=== PATIENT | female | born 1985 | race Caucasian/White ===

== ENCOUNTER 2017-04-22 04:59 | Emergency (ER) | payer OTHER ==
[~2017-04-22] VITALS: Ht 165.1 cm; Wt 52.6 kg
[~2017-04-22 04:59] MED LIST: BCPILLS PO
[2017-04-22 05:07] VITALS: TEMP 36.6; Ht 165.1 cm; Wt 52.6 kg
[2017-04-22] MEDS ORDERED: SODIUM CHLORIDE 0.9% 1000ML 1,000 ML IV STA (05:40)
[2017-04-22 05:49] LABS: BASO % 0.3 %; BASO ABS # 0.02 K/uL (0-0.2); COMPLETE YES; HEMATOCRIT 39.8 % (37-47); IG% 0.3 %; LYMPH % 17.2 %; LYMPH ABS # 1.26 K/uL (1.2-3.4); MEAN CELL VOLUME 95.2 fL (80-100); MEAN CORPUSCULAR HEMOGLOBIN 32.3 pg (25-34); MEAN CORPUSCULAR HGB CONC 33.9 g/dl (32-36); MEAN PLATELET VOLUME 10.7 fL (7.4-10.4); NEUT % 72.2 %; PLATELET COUNT 165 K/uL (130-400); RED BLOOD COUNT 4.18 M/uL (4.2-5.4); WHITE BLOOD COUNT 7.32 K/uL (4.8-10.8)
[2017-04-22] MEDS ORDERED: KETOROLAC TROMETHAMINE 30 MG/ML VIAL IV STA (05:56)
[2017-04-22 05:59] LABS: BUN/CREATININE RATIO 18.6 (10-20); CALCIUM 8.7 mg/dl (8.5-10.1); CREATININE 0.88 mg/dl (0.60-1.20); POTASSIUM 3.9 mmol/L (3.5-5.1)
[2017-04-22 06:01] LABS: ALB/GLOB RATIO 1.2 (0.9-2)
[2017-04-22 06:03] LABS: URINE APPEARANCE CLEAR (CLEAR); URINE BILIRUBIN NEG (NEG); URINE COLOR YELLOW; URINE NITRITE NEG (NEG); URINE SPECIFIC GRAVITY 1.022 (1.000-1.030); UROBILINOGEN NEG (NEG); ZZUR CULT IF INDIC CLEAN CATCH NO
[2017-04-22 06:05] LABS: MANUAL MICROSCOPIC REQUIRED? NO; REVIEW REQ? NO
[2017-04-22] MEDS ORDERED: MoRPHine SULFATE 4 MG/ML 1 ML CARP\\VIAL IV STA (06:18)
[2017-04-22] MEDS ORDERED: LEVOTAB2 PO (06:53)
[2017-04-22] MEDS ORDERED: MoRPHine SULFATE 2 MG/ML CARP IV STA (07:19)
--- NOTE | 2017-04-22 07:35 | DIAGNOSTIC IMAGING REPORT ---
PELVIC ULTRASOUND, TRANSABDOMINAL AND TRANSVAGINAL HISTORY: lower abd pain, hx ovarian cyst COMPARISON: Pelvic ultrasound 07/08/2011. FINDINGS: Uterus: Unremarkable. Endometrial stripe: Small amount of fluid within the endometrial cavity. The endometrial stripe measures 2 mm in thickness. Right ovary: Obscured by overlying bowel gas. Left ovary: Obscured by overlying bowel gas. Miscellaneous:Trace pelvic fluid. IMPRESSION: 1. Small amount of fluid within the endometrial cavity. The endometrial stripe is normal in thickness. 2. The ovaries were obscured by overlying bowel gas. 3. Trace pelvic free fluid which is likely physiologic. Electronically signed by: Jose Miguel Pradhan M.D. 04/22/2017 7:34 AM Dictated Date/Time: 04/22/2017 7:32 AM
[2017-04-22 07:40] VITALS: BP 119/80; PULSE 73; O2SAT 100
--- NOTE | 2017-04-22 07:45 | EMERGENCY ROOM VISIT NOTE ---
History First contact with patient: 05:10 Chief Complaint: ABDOMINAL PAIN Stated Complaint: SEVERE STOMACH PAIN Nursing Triage Summary: c/o abd pain since 1930 no n/v/d. History of Present Illness The patient is a 32 year old female who presents to the Emergency Room with complaints of abdominal pain which began yesterday evening. She states the pain is in the lower abdomen and has been gradually worsening. She has been able to eat without difficulty. She performed an enema at home without relief. The patient does report she has had normal bowel movements but thought that the enema could help her pain. She took Rolaids without relief. The patient denies any nausea, vomiting, fevers, vaginal discharge or urinary symptoms. She currently has her menstrual period. She takes control pills but no other medications daily. She denies any surgical history. She did not take any medication at home for the pain. She does report a history of ovarian cysts and states this feels similar. Review of Systems A complete 10 point review of systems was reviewed with the patient with pertinent positives and negatives as per history of present illness. All else were negative. Family History Gallbladder disease Social History Smoking Status: Never Smoker Alcohol Use: occasionally Marital Status: Housing Status: lives with family Occupation Status: employed Current/Historical Medications Scheduled Levonorgestrel & Eth Estradiol (Aviane), 1 TAB PO DAILY Allergies Coded Allergies: Sulfa Drugs (Unverified Allergy, Unknown, UNKNOWN, 03/06/16) Physical Exam Vital Signs Date Time Temp Pulse Resp B/P (MAP) Pulse Ox O2 Delivery O2 Flow Rate FiO2 04/22/17 07:40 73 18 119/80 100 Room Air 04/22/17 06:18 71 22 126/90 100 Room Air 04/22/17 05:07 36.6 60 18 133/82 100 Room Air Physical Exam VITALS: Vitals are noted on the nurse's note and reviewed by myself. Vital signs stable. GENERAL: This is a 32-year-old female, in no acute distress, nondiaphoretic, well-developed well-nourished. HEENT: Normocephalic. PERRLA. EOMI. Mucous membranes moist. HEART: Regular rate and rhythm without murmurs gallops or rubs. LUNGS: Clear to auscultation bilaterally without wheezes, rales or rhonchi. ABDOMEN: Positive bowel sounds x 4. Soft, mild tenderness to palpation over the suprapubic region. No guarding or rebound tenderness. NEURO: Patient was alert and oriented to person place and time. Medical Decision & Procedures ER Provider Diagnostic Interpretation: PELVIC ULTRASOUND, TRANSABDOMINAL AND TRANSVAGINAL HISTORY: lower abd pain, hx ovarian cyst COMPARISON: Pelvic ultrasound 07/08/2011. FINDINGS: Uterus: Unremarkable. Endometrial stripe: Small amount of fluid within the endometrial cavity. The endometrial stripe measures 2 mm in thickness. Right ovary: Obscured by overlying bowel gas. Left ovary: Obscured by overlying bowel gas. Miscellaneous:Trace pelvic fluid. IMPRESSION: 1. Small amount of fluid within the endometrial cavity. The endometrial stripe is normal in thickness. 2. The ovaries were obscured by overlying bowel gas. 3. Trace pelvic free fluid which is likely physiologic. Laboratory Results 04/22/17 05:30 Red Blood Count 4.18, Mean Corpuscular Volume 95.2, Mean Corpuscular Hemoglobin 32.3, Mean Corpuscular Hemoglobin Concent 33.9, Mean Platelet Volume 10.7, Neutrophils (%) (Auto) 72.2, Lymphocytes (%) (Auto) 17.2, Monocytes (%) (Auto) 7.0, Eosinophils (%) (Auto) 3.0, Basophils (%) (Auto) 0.3, Neutrophils # (Auto) 5.29, Lymphocytes # (Auto) 1.26, Monocytes # (Auto) 0.51, Eosinophils # (Auto) 0.22, Basophils # (Auto) 0.02 04/22/17 05:30 Test 04/22/17 05:30 04/22/17 05:40 White Blood Count 7.32 K/uL (4.8-10.8) Red Blood Count 4.18 M/uL (4.2-5.4) Hemoglobin 13.5 g/dL (12.0-16.0) Hematocrit 39.8 % (37-47) Mean Corpuscular Volume 95.2 fL (80-100) Mean Corpuscular Hemoglobin 32.3 pg (25-34) Mean Corpuscular Hemoglobin Concent 33.9 g/dl (32-36) Platelet Count 165 K/uL (130-400) Mean Platelet Volume 10.7 fL (7.4-10.4) Neutrophils (%) (Auto) 72.2 % Lymphocytes (%) (Auto) 17.2 % Monocytes (%) (Auto) 7.0 % Eosinophils (%) (Auto) 3.0 % Basophils (%) (Auto) 0.3 % Neutrophils # (Auto) 5.29 K/uL (1.4-6.5) Lymphocytes # (Auto) 1.26 K/uL (1.2-3.4) Monocytes # (Auto) 0.51 K/uL (0.11-0.59) Eosinophils # (Auto) 0.22 K/uL (0-0.5) Basophils # (Auto) 0.02 K/uL (0-0.2) RDW Standard Deviation 45.2 fL (36.4-46.3) RDW Coefficient of Variation 13.0 % (11.5-14.5) Immature Granulocyte % (Auto) 0.3 % Immature Granulocyte # (Auto) 0.02 K/uL (0.00-0.02) Anion Gap 10.0 mmol/L (3-11) Est Creatinine Clear Calc Drug Dose 74.8 ml/min Estimated GFR () 99.4 Estimated GFR (Non- 85.7 BUN/Creatinine Ratio 18.6 (10-20) Calcium Level 8.7 mg/dl (8.5-10.1) Total Bilirubin 0.5 mg/dl (0.2-1) Aspartate Amino Transf (AST/SGOT) 17 U/L (15-37) Alanine Aminotransferase (ALT/SGPT) 29 U/L (12-78) Alkaline Phosphatase 55 U/L (45-117) Total Protein 7.0 gm/dl (6.4-8.2) Albumin 3.8 gm/dl (3.4-5.0) Globulin 3.2 gm/dl (2.5-4.0) Albumin/Globulin Ratio 1.2 (0.9-2) Urine Color YELLOW Urine Appearance CLEAR (CLEAR) Urine pH 6.0 (4.5-7.5) Urine Specific [place] 1.022 (1.000-1.030) Urine Protein NEG (NEG) Urine Glucose (UA) NEG (NEG) Urine Ketones NEG (NEG) Urine Occult Blood NEG (NEG) Urine Nitrite NEG (NEG) Urine Bilirubin NEG (NEG) Urine Urobilinogen NEG (NEG) Urine Leukocyte Esterase NEG (NEG) Urine Test NEG (NEG) Medications Administered Medications (Trade) Dose Ordered Sig/Ephraim Route Start Time Stop Time Status Last Admin Dose Admin Sodium Chloride 1,000 ml @ 999 mls/hr Q1H1M STAT IV 04/22/17 05:40 04/22/17 06:40 DC 04/22/17 05:53 999 MLS/HR Ketorolac Tromethamine (Toradol Inj) 30 mg NOW STAT IV 04/22/17 05:56 04/22/17 05:57 DC 04/22/17 06:00 30 MG Morphine Sulfate (MoRPHine SULFATE INJ) 4 mg NOW STAT IV 04/22/17 06:18 04/22/17 06:19 DC 04/22/17 06:22 4 MG Morphine Sulfate (MoRPHine SULFATE INJ) 2 mg NOW STAT IV 04/22/17 07:19 04/22/17 07:20 DC 04/22/17 07:39 2 MG ED Course The patient was evaluated as above. Labs were drawn and IV access was obtained. Patient was medicated with 30 mg Toradol IV Patient reported continued pain and was given 4 mg morphine IV.. Pelvic ultrasound was performed and read by radiology as above. Patient was reevaluated and did have mild continued pain. She was given an additional 2 mg morphine IV. Discharge instructions were reviewed with the patient. The patient verbalized understanding of my assessment and treatment plan and was discharged home in good condition. Medical Decision Differential diagnosis includes ovarian cyst, ovarian torsion, ectopic , UTI, appendicitis, cholecystitis, pancreatitis, gastroenteritis, bowel obstruction, PID, among others. The patient is a 32-year-old female who presents today complaining of suprapubic abdominal pain. She had mild tenderness on exam. Labs revealed no leukocytosis, anemia or concerning electrolyte abnormalities. Kidney and liver functions are within normal limits. Urinalysis was not suggestive of infection. Urine was negative. A pelvic ultrasound was performed. The ovaries were obscured by overlying bowel gas. The patient may be having pelvic pain related to her menstrual cycle or could have an ovarian cyst that is not identified on ultrasound. She has had cysts in the past and states her symptoms feel similar. I did discuss options of care including ordering a CT scan versus observation for worsening symptoms at home. The patient and her mother agreed that she would like to be discharged home and will return here if she develops worsening symptoms. She will follow-up with her primary care provider this week or return here as needed. Based on the patient's presentation and work up, I feel the patient is stable for outpatient treatment. The patient was educated to return to the emergency department for any worsening of their current condition or new/concerning symptoms. She will follow up with her PCP and [employer]. Medication reconciliation: I attest that I have personally reviewed the patient 's current medication list. Blood pressure screening: Patient was found to have normal blood pressure on screening and does not require follow-up. Impression Primary Impression: Suprapubic abdominal pain Departure Information Dispostion Home / Self-Care Condition GOOD Referrals Kristin Jerome D.O. (PCP) Patient Instructions My [facility] Additional Instructions You have been treated in the Emergency Department your Abdominal Pain. Laboratory results and imaging studies have ruled out any emergent causes for your abdominal pain which would warrant admission or surgery. For pain control, you can use the following [id number] medicines (if >12 yo): - Regular strength (325mg/tab) Tylenol (acetaminophen) 2 tabs every 4-6 hours as needed. Do not exceed 12 tablets in a 24 hour period. Avoid taking more than 4 grams (4000 mg) of Tylenol per day. This includes any other sources of acetaminophen you may take on a regular basis. - Regular strength (200 mg/tab) Advil (ibuprofen) 1-2 tabs every 4-6 hours as needed. Do not exceed a dose of 3200 mg per day. Drink plenty of water and stay well hydrated. As with any trip to the Emergency Department, you should follow-up with your Primary Care Provider from today's visit. Return to the emergency department if your symptoms persist despite treatment plan outlined above or if the following symptoms occur: Worsening pain, vomiting , fevers or any other new/concerning symptoms.
[2017-04-22] MEDS ORDERED: BCPILLS PO (18:51)
[2017-04-22] MEDS ORDERED: OXYC1TAB3 PO (21:59)
[2017-04-22] MEDS ORDERED: ONDA4TAB10 SL (21:59)
[2017-04-26] MEDS ORDERED: CLC100X PO (09:47)
== END 2017-04-22 08:11 | disposition home or self-care (01) ==
LOC: C.EDB 05:00 → C.EDA 08:11
DX: R10.30 Lower abdominal pain, unspecified (principal); Z79.3 Long term (current) use of hormonal contraceptives

== ENCOUNTER 2017-04-22 18:13 | Emergency (ER) | payer OTHER ==
[~2017-04-22] VITALS: Ht 165.1 cm; Wt 53.4 kg
[~2017-04-22 18:13] MED LIST changes: +LEVOTAB2 PO
[2017-04-22 18:15] VITALS: TEMP 36.5; Ht 165.1 cm; Wt 53.4 kg
[2017-04-22] MEDS ORDERED: SODIUM CHLORIDE 0.9% 1000ML 1,000 ML IV STA (18:32)
[2017-04-22] MEDS ORDERED: ONDANSETRON INJ 2 MG/ML 2 ML VIAL IV STA (18:32)
[2017-04-22] MEDS ORDERED: SODIUM CHLORIDE 0.9% 1000ML 1,000 ML IV ONE (18:32)
[2017-04-22] MEDS ORDERED: MoRPHine SULFATE 4 MG/ML 1 ML CARP\\VIAL IV STA (18:32)
--- NOTE | 2017-04-22 18:39 | EMERGENCY ROOM VISIT NOTE ---
History Report prepared by Nando: Candice Barnett Under the Supervision of: Dr. Amari Louise M.D. First contact with patient: 18:20 Chief Complaint: ABDOMINAL PAIN Stated Complaint: VOMITING, SEVERE ABDOMINAL PAIN Nursing Triage Summary: Abdominal pain bilateral lower abdomen since last night. Seen in ED this morning and discharged with a negative assessment. Pt presents with 10/10 abdominal pain, has not relieved since discharge. Tyelnol and ibuprofen not helping pain. History of Present Illness The patient is a 32 year old female who presents to the Emergency Room with complaints of waxing and waning mid-abdominal pain starting around 7:30 pm last night. She notes intermittent pain radiation to the left side of her back. The patient had a bowel movement yesterday without relief. She does not have any worsening pain with walking. She was evaluated at the Emergency Room last night. She had an ultrasound yesterday which was negative but the ovaries could not be visualized. She has been taking Tylenol and Ibuprofen with some relief. The patient had a vomiting episode last night. She currently rates a pain intensity of 4/10. She currently denies any nausea. She is currently having her menstrual period. She normally has some period with her period but it is never too severe. She denies headache, sore throat, chest pain, shortness of breath, diarrhea, urinary symptoms, vaginal bleeding or discharge, or any other complaints. She has a history of ovarian cyst and reports similar pain. She denies any history of abdominal surgeries or kidney stones. She is not currently on any medication except for control. 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 Source of History: patient Onset: last night Position: abdomen (mid) Symptom Intensity: 4/10 Timing: waxes/wanes Modifying Factors (Relieving): tylenol (with some relief), ibuprofen (with some relief) Associated Symptoms: + vomiting, No headache, No sorethroat, No chest pain, No SOB, No diarrhea, No urinary symptoms Review of Systems As above. All other systems reviewed were negative unless otherwise stated in history. At least 10 were reviewed Past Medical & Surgical Medical Problems: (1) Mitral valve prolapse (2) SVT (supraventricular tachycardia) Old medical records were reviewed. Nurse's notes were reviewed and I agree with. Family History Gallbladder disease Social History Smoking Status: Never Smoker Alcohol Use: occasionally Marital Status: Housing Status: lives with family Occupation Status: employed Current/Historical Medications Scheduled Control Pills ( Control Pills), 1 TAB PO DAILY Ondasetron Odt (Zofran Odt), 4 MG SL Q6H Scheduled PRN Oxycodone Immediate Rel Tab (Roxicodone Ir), 1 TAB PO Q6 PRN for Severe Pain Allergies Coded Allergies: Sulfa Drugs (Unverified Allergy, Unknown, UNKNOWN, 03/06/16) Physical Exam Vital Signs Date Time Temp Pulse Resp B/P (MAP) Pulse Ox O2 Delivery O2 Flow Rate FiO2 04/22/17 22:20 53 18 122/76 100 04/22/17 20:30 61 18 117/76 100 Room Air 04/22/17 18:15 36.5 66 18 152/90 100 Room Air Physical Exam General: Mildly ill-appearing, young female, in no acute distress. HEENT: Normal cephalic atraumatic. Pupils are equal round and reactive to light. Extraocular movements are intact. Oropharynx is pink with moist mucous membranes. No swelling of the mouth lips or tongue. Neck: Supple with a midline trachea. No meningeal signs or stiffness, no JVD or bruits. No Stridor. Chest: Clear to auscultation bilaterally. No wheezes or rhonchi. No increased work of breathing. Heart: regular rate and rhythm. Abdomen: Soft, nondistended without rebound guarding or rigidity. Mildly diffusely tender in the central abdomen, no guarding or rigidity. Extremities: No cyanosis clubbing or edema. No calf tenderness or assymetry Spine/Back. Non tender to palpation. No CVA tenderness Skin: Good turgor without rashes. Neurologic exam: Cranial nerves two through 12 are intact. Motor and sensation are intact and symmetrical throughout. Medical Decision & Procedures ER Provider Diagnostic Interpretation: CT results as stated below per my review and radiologist interpretation: ABDOMEN AND PELVIS CT WITH IV CONTRAST CT DOSE: 266.09 mGy.cm HISTORY: Right lower quadrant abdominal pain. eval for appy, ovarian cyst, colitis TECHNIQUE: Multiaxial CT images of the abdomen and pelvis were performed following the use of intravenous contrast. COMPARISON STUDY: Abdomen and pelvis CT 07/08/2011. FINDINGS: The lung bases are clear. No pneumoperitoneum. No pneumatosis. No fractures within the visualized osseous structures. No hepatic or splenic masses. Mild periportal edema. The gallbladder, adrenal glands, and pancreas are unremarkable. The kidneys enhance normally. No hydronephrosis. The spleen is enlarged measuring 17 cm in length. No retroperitoneal lymphadenopathy. Small amount pelvic free fluid. Normal bladder, uterus, bilateral adnexa. The appendix is not clearly identified. This is obscured by the multiple decompressed loops of small bowel within the right lower quadrant. Suboptimal evaluation for bowel pathology due to the lack of oral contrast. However, there is no definite bowel wall thickening or obstruction. Punctate calcifications within the right lower quadrant appear to be within the small bowel and cecum. IMPRESSION: 1. Splenomegaly. 2. Mild periportal edema. This is nonspecific and could be due to overhydration or underlying hepatic pathology. Recommend correlation with LFTs. 3. No definite bowel wall thickening or obstruction. 4. The appendix is not identified. 5. Small amount of pelvic free fluid. Electronically signed by: Jose Miguel Pradhan M.D. 04/22/2017 7:59 PM Dictated Date/Time: 04/22/2017 7:46 PM Laboratory Results 04/22/17 18:48 Red Blood Count 4.13, Mean Corpuscular Volume 94.2, Mean Corpuscular Hemoglobin 32.0, Mean Corpuscular Hemoglobin Concent 33.9, Mean Platelet Volume 10.7, Neutrophils (%) (Auto) 62.0, Lymphocytes (%) (Auto) 27.6, Monocytes (%) (Auto) 6.2, Eosinophils (%) (Auto) 3.6, Basophils (%) (Auto) 0.4, Neutrophils # (Auto) 3.48, Lymphocytes # (Auto) 1.55, Monocytes # (Auto) 0.35, Eosinophils # (Auto) 0.20, Basophils # (Auto) 0.02 04/22/17 18:48 Test 04/22/17 18:48 White Blood Count 5.61 K/uL (4.8-10.8) Red Blood Count 4.13 M/uL (4.2-5.4) Hemoglobin 13.2 g/dL (12.0-16.0) Hematocrit 38.9 % (37-47) Mean Corpuscular Volume 94.2 fL (80-100) Mean Corpuscular Hemoglobin 32.0 pg (25-34) Mean Corpuscular Hemoglobin Concent 33.9 g/dl (32-36) Platelet Count 141 K/uL (130-400) Mean Platelet Volume 10.7 fL (7.4-10.4) Neutrophils (%) (Auto) 62.0 % Lymphocytes (%) (Auto) 27.6 % Monocytes (%) (Auto) 6.2 % Eosinophils (%) (Auto) 3.6 % Basophils (%) (Auto) 0.4 % Neutrophils # (Auto) 3.48 K/uL (1.4-6.5) Lymphocytes # (Auto) 1.55 K/uL (1.2-3.4) Monocytes # (Auto) 0.35 K/uL (0.11-0.59) Eosinophils # (Auto) 0.20 K/uL (0-0.5) Basophils # (Auto) 0.02 K/uL (0-0.2) RDW Standard Deviation 44.3 fL (36.4-46.3) RDW Coefficient of Variation 12.8 % (11.5-14.5) Immature Granulocyte % (Auto) 0.2 % Immature Granulocyte # (Auto) 0.01 K/uL (0.00-0.02) Urine Color YELLOW Urine Appearance CLEAR (CLEAR) Urine pH 7.5 (4.5-7.5) Urine Specific [place] 1.005 (1.000-1.030) Urine Protein NEG (NEG) Urine Glucose (UA) NEG (NEG) Urine Ketones NEG (NEG) Urine Occult Blood NEG (NEG) Urine Nitrite NEG (NEG) Urine Bilirubin NEG (NEG) Urine Urobilinogen NEG (NEG) Urine Leukocyte Esterase NEG (NEG) Anion Gap 8.0 mmol/L (3-11) Est Creatinine Clear Calc Drug Dose 91.5 ml/min Estimated GFR () 124.5 Estimated GFR (Non- 107.5 BUN/Creatinine Ratio 14.5 (10-20) Calcium Level 8.3 mg/dl (8.5-10.1) Total Bilirubin 1.0 mg/dl (0.2-1) Direct Bilirubin 0.3 mg/dl (0-0.2) Aspartate Amino Transf (AST/SGOT) 17 U/L (15-37) Alanine Aminotransferase (ALT/SGPT) 27 U/L (12-78) Alkaline Phosphatase 54 U/L (45-117) Total Protein 6.8 gm/dl (6.4-8.2) Albumin 3.8 gm/dl (3.4-5.0) Lipase 82 U/L (73-393) Human Chorionic Gonadotropin, Qual NEG (NEG) Monoscreen NEG (NEG) Laboratory studies as stated above per my review. Medications Administered Medications (Trade) Dose Ordered Sig/Ephraim Route Start Time Stop Time Status Last Admin Dose Admin Sodium Chloride 1,000 ml @ 999 mls/hr Q1H1M STAT IV 04/22/17 18:32 04/22/17 19:32 DC 04/22/17 18:58 999 MLS/HR Sodium Chloride 1,000 ml @ 200 mls/hr Q5H ONCE IV 04/22/17 18:32 04/22/17 22:33 DC 04/22/17 20:29 200 MLS/HR Morphine Sulfate (MoRPHine SULFATE INJ) 4 mg NOW STAT IV 04/22/17 18:32 04/22/17 18:35 DC 04/22/17 18:57 4 MG Ondansetron HCl (Zofran Inj) 4 mg NOW STAT IV 04/22/17 18:32 04/22/17 18:35 DC 04/22/17 18:57 4 MG Oxycodone HCl (Roxicodone Immediate Rel 5MG Home Pack) 1 homepack UD ONCE PO 04/22/17 22:00 04/22/17 22:01 DC 04/22/17 22:14 1 HOMEPACK Ondansetron HCl (ZOFRAN ODT 4MG Home Pack) 1 homepack UD ONCE PO 04/22/17 22:00 04/22/17 22:01 DC 04/22/17 22:14 1 HOMEPACK ED Course 1820: Past medical records reviewed. The patient was evaluated in room C12B, and a complete history and physical examination were performed. 1831: Zofran Inj 4 mg IV, Morphine Sulfate 4 mg IV, Sodium Chloride 1000 ml @ 200 mls/hr IV, Sodium Chloride 1000 ml @ 999 mls/hr IV 1913: I reevaluated the patient who is feeling better. She is waiting to go to CT scan. 1953: I reevaluated the patient. She is resting comfortably without pain. 2043: The patient is resting comfortably. 2199: Ondansetron HCl 1 homepack PO, Oxycodone HCl 1 homepack PO 2226: Upon reevaluation, the patient is resting comfortably. I discussed the results and treatment plan with her. She verbalized agreement of the treatment plan. The patient was discharged home. Medical Decision Differential diagnosis includes but is not limited to appendicitis, dehydration , ovarian cyst, colitis, electrolyte or metabolic abnormalities. Medication Reconciliation: I attest that I have personally reviewed the patient' s current medication list. Blood Pressure Screening: Patient was found to have a slightly elevated blood pressure due to circumstances. I do not believe that the patient requires hypertension monitoring. This patient comes in as described above. She was seen here last night and has continuing abdominal pain. She also had an episode of vomiting as well. The pain is central. She has no peritonitis on exam. I reviewed her workup from yesterday and she is not . Her white count is not elevated and ultrasound was unremarkable however the ovaries were not definitely visualized. She denies any vaginal bleeding or urinary symptoms. IV access was established blood work and urinalysis was obtained . She was hydrated with 1 L IV normal saline bolus and 200 mL an hour of IV NS. Her mothers was at the bedside and I discussed the care with her as well. Her mother is driving. She was given morphine 4 mg IV and Zofran 4 mg IV. I did order a CAT scan after splinting the risks and the benefits skin shows some splenomegaly but otherwise no acute findings. I'm not sure the splenomegaly is actually causing her symptoms and she's not tender when I push and left upper quadrant. I had a Monospot test that was negative. This could be related to some viral illness and again her tenderness is not over the spleen. She's had no evidence of bleeding. We'll have her rest and drink clear fluids follow-up with her doctor in 1-2 days for recheck. She can use Zofran for nausea or vomiting. For pain, she can use [id number] pain medicine but do not exceed the over-the- counter dosing regimen. She should return if: increasing pain, worsening of symptoms, fever or chills, any new problems or concerns. She is happy with the plan and discharged to home. Impression Primary Impression: Central abdominal pain Additional Impression: Splenomegaly Scribe Attestation The scribe's documentation has been prepared under my direction and personally reviewed by me in its entirety. I confirm that the note above accurately reflects all work, treatment, procedures, and medical decision making performed by me. Departure Information Dispostion Home / Self-Care Prescriptions Ondasetron Odt (ZOFRAN ODT) 4 Mg Tab 4 MG SL Q6H for Nausea, #6 TAB Prov: Amari Louise M.D. 04/22/17 Oxycodone Immediate Rel Tab (ROXICODONE IR) 5 Mg Tab 1 TAB PO Q6 Y for Severe Pain, #10 TAB Prov: Amari Louise M.D. 04/22/17 Referrals Kristin Jerome D.O. (PCP) Forms Call Back Authorization, HOME CARE DOCUMENTATION FORM, IMPORTANT VISIT INFORMATION Patient Instructions My [facility] Additional Instructions Rest Drink plenty of fluids For nausea May use Zofran 4 mg every 6 hours as needed For pain, may use [id number] Tylenol/acetaminophen Do not exceed the [id number] recommended dosages for these medications For more severe pain use OxyIR 5 mg, 1 pill every 4-6 hours as needed OxyIR may make you drowsy do not take before drinking, driving, working Avoid any activity where you could hit her abdomen or injure your spleen Return if: Increasing pain, worsening of symptoms, fever or chills, any new problems or concerns Follow-up with your doctor in 1-2 days for recheck Problem Qualifiers
[2017-04-22] MEDS ORDERED: BCPILLS PO (18:51)
[2017-04-22 19:00] LABS: BASO % 0.4 %; BASO ABS # 0.02 K/uL (0-0.2); COMPLETE YES; EOS % 3.6 %; HEMATOCRIT 38.9 % (37-47); IG% 0.2 %; LYMPH % 27.6 %; LYMPH ABS # 1.55 K/uL (1.2-3.4); MEAN CELL VOLUME 94.2 fL (80-100); MEAN CORPUSCULAR HGB CONC 33.9 g/dl (32-36); MEAN PLATELET VOLUME 10.7 fL (7.4-10.4); MONO % 6.2 %; PLATELET COUNT 141 K/uL (130-400); RED BLOOD COUNT 4.13 M/uL (4.2-5.4); WHITE BLOOD COUNT 5.61 K/uL (4.8-10.8)
[2017-04-22 19:22] LABS: BUN/CREATININE RATIO 14.5 (10-20); CALCIUM 8.3 mg/dl (8.5-10.1); CREATININE 0.73 mg/dl (0.60-1.20); POTASSIUM 3.8 mmol/L (3.5-5.1)
[2017-04-22 19:31] LABS: URINE APPEARANCE CLEAR (CLEAR); URINE BILIRUBIN NEG (NEG); URINE COLOR YELLOW; URINE NITRITE NEG (NEG); URINE PH 7.5 (4.5-7.5); URINE SPECIFIC GRAVITY 1.005 (1.000-1.030); UROBILINOGEN NEG (NEG)
[2017-04-22 19:36] LABS: PREG INTERNAL NEGATIVE QC NEG CLEAR BACKGROUND; PREG INTERNAL POSITIVE QC POS CONTROL LINE
[2017-04-22] MEDS ORDERED: OPTIRAY 320 IV PRN (19:45)
[2017-04-22 19:52] LABS: MANUAL MICROSCOPIC REQUIRED? NO; REVIEW REQ? NO
--- NOTE | 2017-04-22 20:00 | DIAGNOSTIC IMAGING REPORT ---
ABDOMEN AND PELVIS CT WITH IV CONTRAST CT DOSE: 266.09 mGy.cm HISTORY: Right lower quadrant abdominal pain. eval for appy, ovarian cyst, colitis TECHNIQUE: Multiaxial CT images of the abdomen and pelvis were performed following the use of intravenous contrast. COMPARISON STUDY: Abdomen and pelvis CT 07/08/2011. FINDINGS: The lung bases are clear. No pneumoperitoneum. No pneumatosis. No fractures within the visualized osseous structures. No hepatic or splenic masses. Mild periportal edema. The gallbladder, adrenal glands, and pancreas are unremarkable. The kidneys enhance normally. No hydronephrosis. The spleen is enlarged measuring 17 cm in length. No retroperitoneal lymphadenopathy. Small amount pelvic free fluid. Normal bladder, uterus, bilateral adnexa. The appendix is not clearly identified. This is obscured by the multiple decompressed loops of small bowel within the right lower quadrant. Suboptimal evaluation for bowel pathology due to the lack of oral contrast. However, there is no definite bowel wall thickening or obstruction. Punctate calcifications within the right lower quadrant appear to be within the small bowel and cecum. IMPRESSION: 1. Splenomegaly. 2. Mild periportal edema. This is nonspecific and could be due to overhydration or underlying hepatic pathology. Recommend correlation with LFTs. 3. No definite bowel wall thickening or obstruction. 4. The appendix is not identified. 5. Small amount of pelvic free fluid. Electronically signed by: Jose Miguel Pradhan M.D. 04/22/2017 7:59 PM Dictated Date/Time: 04/22/2017 7:46 PM
[2017-04-22] MEDS ORDERED: ONDA4TAB10 SL (21:59)
[2017-04-22] MEDS ORDERED: OXYC1TAB3 PO (21:59)
[2017-04-22] MEDS ORDERED: ONDANSETRON HOME PACK 4MG OD TAB PO ONE (22:00)
[2017-04-22] MEDS ORDERED: OXYCODONE IR HOME PACK PO ONE (22:00)
[2017-04-22 22:20] VITALS: BP 122/76; PULSE 53; O2SAT 100
[2017-04-26] MEDS ORDERED: CLC100X PO (09:47)
== END 2017-04-22 22:23 | disposition home or self-care (01) ==
LOC: C.EDB 18:14 → C.EDC 22:23
DX: R10.9 Unspecified abdominal pain (principal); R16.1 Splenomegaly, not elsewhere classified; M54.9 Dorsalgia, unspecified; R11.10 Vomiting, unspecified

== ENCOUNTER 2017-04-24 08:58 | Observation (INO) | payer OTHER ==
[~2017-04-24] VITALS: Ht 165.1 cm; Wt 52.6 kg
[~2017-04-24 08:58] MED LIST changes: -LEVOTAB2 PO; +ONDA4TAB10 SL; +OXYC1TAB3 PO
[2017-04-24] MEDS ORDERED: SODIUM CHLORIDE 0.9% 1000ML 1,000 ML IV STA (09:28)
[2017-04-24] MEDS ORDERED: LORAZEPAM 2 MG/ML 1 ML VIAL IV STA (09:28)
[2017-04-24] MEDS ORDERED: MoRPHine SULFATE 4 MG/ML 1 ML CARP\\VIAL IV STA (09:28)
[2017-04-24] MEDS ORDERED: ONDANSETRON INJ 2 MG/ML 2 ML VIAL IV STA (09:28)
[2017-04-24] MEDS ORDERED: IBUP-1459 PO (09:50)
[2017-04-24] MEDS ORDERED: ACET325T96 PO (09:50)
[2017-04-24 09:53] LABS: BASO % 0.3 %; BASO ABS # 0.02 K/uL (0-0.2); COMPLETE YES; EOS % 3.9 %; HEMATOCRIT 39.4 % (37-47); IG% 0.1 %; LYMPH % 14.9 %; LYMPH ABS # 1.06 K/uL (1.2-3.4); MEAN CELL VOLUME 96.3 fL (80-100); MEAN CORPUSCULAR HEMOGLOBIN 31.8 pg (25-34); MEAN PLATELET VOLUME 10.6 fL (7.4-10.4); MONO % 5.1 %; NEUT % 75.7 %; PLATELET COUNT 139 K/uL (130-400); RED BLOOD COUNT 4.09 M/uL (4.2-5.4)
[2017-04-24 10:03] LABS: URINE APPEARANCE CLEAR (CLEAR); URINE BILIRUBIN NEG (NEG); URINE COLOR YELLOW; URINE EPITHELIAL CELL AUTO 0-5 /lpf (0-5); URINE NITRITE NEG (NEG); URINE PH 8.5 (4.5-7.5); URINE SPECIFIC GRAVITY 1.014 (1.000-1.030); UROBILINOGEN NEG (NEG); ZZUR CULT IF INDIC CLEAN CATCH NO
[2017-04-24 10:08] LABS: MANUAL MICROSCOPIC REQUIRED? NO; REVIEW REQ? NO
[2017-04-24 10:09] LABS: BUN/CREATININE RATIO 9.2 (10-20); CALCIUM 8.6 mg/dl (8.5-10.1); CREATININE 0.76 mg/dl (0.60-1.20); POTASSIUM 3.7 mmol/L (3.5-5.1)
[2017-04-24 10:13] LABS: C-REACTIVE PROTEIN 0.3 mg/dl (0-0.29)
[2017-04-24 10:17] LABS: PREG INTERNAL NEGATIVE QC NEG CLEAR BACKGROUND; PREG INTERNAL POSITIVE QC POS CONTROL LINE
[2017-04-24 12:15] VITALS: O2SAT 100; Ht 165.1 cm; Wt 52.6 kg
[2017-04-24] MEDS ORDERED: ALUMINUM/MAGNESIUM SUSP 30 ML UDC PO PRN (12:30)
[2017-04-24] MEDS ORDERED: ONDANSETRON INJ 2 MG/ML 2 ML VIAL IV PRN (12:30)
[2017-04-24] MEDS ORDERED: IV FLUIDS COMPLETED PRN (12:45)
--- NOTE | 2017-04-24 13:05 | HISTORY & PHYSICAL EXAMINATION ---
DATE OF ADMISSION: 04/24/2017 PRIMARY CARE PROVIDER: Dr. Jerome. CHIEF COMPLAINT: Lower abdominal pain with nausea and vomiting since Sunday last. HISTORY OF PRESENT COMPLAINT: She is a 32-year-old female without significant past medical history, apparently has been complaining of lower abdominal pain since Sunday evening. She did not eat anything special before that and nobody else has been affected in the family. She had vomited about 3 times since Sunday and she came to ER Sunday and again ER on Sunday and she has had an ultrasound and also CT scan of the abdomen and pelvis as of today. Ultrasound came out negative except physiological amount of pelvic fluid and CT scan did show she may have mild splenic enlargement, but no other findings. Her labs were unremarkable. Given the ongoing problem with abdominal pain and vomiting with probable diagnosis of gastroenteritis, she was admitted to medical floor for continuation of care. Denies to any fever, chills or rigors. Denies to any problem with urine. Has not been moving her bowel. No cough, fever or chills. No shortness of breath. No headache. Has nausea and vomiting. No numbness or tingling in the extremities. No problem with her periods as well. PAST MEDICAL HISTORY: Nothing significant except allergic rhinitis, chronic sinusitis, and mitral valve prolapse. PAST SURGICAL HISTORY: Nothing significant. FAMILY HISTORY: Mother has some depression, but no other significant family history. SOCIAL HISTORY: She is . She never smoked and she uses alcohol occasionally and she has been reasonably ambulant. REVIEW OF SYSTEMS: Other systemic review unremarkable except those mentioned in history of present complaint. PHYSICAL EXAMINATION: GENERAL: In the Emergency Room, she was not in any acute distress. VITAL SIGNS: Temperature 36.6, pulse 72, blood pressure 124/76, saturation 100% on room air. HEENT: Unremarkable. NECK: Supple. No JVD, no bruit. CHEST: Clear to auscultation bilaterally. HEART: S1, S2 regular. No murmur. ABDOMEN: Soft, benign, mildly tender in the lower quadrants. No guarding or rigidity. Bowel sounds present. EXTREMITIES: Negative for any edema. MUSCULOSKELETAL: No acute arthritis. CENTRAL NERVOUS SYSTEM: She is alert, awake, oriented x3, and no focal sensory and/or motor deficit appreciated. LABORATORY AND IMAGING DATA: Noted today white count was 7.10, H&H 13.0/39.4, platelet was 139, normal differential. Sodium 131, potassium 3.7, chloride 108, carbon dioxide 27, BUN 7, creatinine 0.76, random glucose 100. LFTs normal. C-reactive protein 0.30. Lipase 71. D-dimer was 350. UA examination unremarkable. [place] screen negative. CT of the abdomen and pelvis that was done today reported as splenomegaly, mild periportal edema, but no other significant findings. Ultrasound of the pelvis and lower abdomen, small amount of fluid within the endometrial cavity with normal endometrial thickness. The ovaries were obscured by overlying bowel gas. Trace pelvic fluid, seems to be physiologic. Pelvic ultrasound same as before. ASSESSMENT AND PLAN: 1. Ongoing abdominal pain with nausea and vomiting, most likely secondary to gastroenteritis. We will admit the patient in the medical floor for observation. We will give adequate amount of IV fluid. Clear liquid diet orally. We will give Maalox and Mylanta for dyspepsia and symptomatic management for nausea and vomiting.No signs and or symptoms of infection. 2. Mild splenomegaly. Her Monospot test is negative. It could be asymptomatic enlargement. There is nothing to suggest any other condition going on. May have to repeat CAT scan or ultrasound down the line as an outpatient. 3. History of mitral valve prolapse. No acute symptoms at this time. 4. Gastrointestinal prophylaxis with Maalox and Mylanta. 5. Deep vein thrombosis prophylaxis, she is quite ambulant, low risk. We will advise ambulation in the hospital and SCDs. 6. Code status. She will be full code. In my clinical judgment, the beneficiary meets criteria as per CMS for 2-midnight stay in the hospital. FARIBA
[2017-04-24 14:00] VITALS: BP 144/83; PULSE 58; TEMP 36.6; O2SAT 100
[2017-04-24] MEDS: NSS + 20MEQ KCL 1000ML 1,000 ML IV SCH ×2 (14:35→22:55)
[2017-04-24 15:55] VITALS: BP 110/72; PULSE 61; TEMP 36.3; O2SAT 100
[2017-04-24] MEDS: KETOROLAC TROMETHAMINE 15 MG/ML VIAL IV PRN ×2 (17:08→22:56)
--- NOTE | 2017-04-24 18:53 | EMERGENCY ROOM VISIT NOTE ---
History Report prepared by Nando: Nesha Boyce Under the Supervision of: Dr. Simon Poole M.D. First contact with patient: 09:14 Chief Complaint: ABDOMINAL PAIN Stated Complaint: ABDOMINAL PAIN,VOMITING History of Present Illness The patient is a 32 year old female who presents to the Emergency Room with complaints of an episode of lower abdominal pain starting three days ago. She currently rates her pain as a 3/10 in severity. The patient states that she called the PCP and the nurse stated that they should just come to the ED. She reports that the pain came on suddenly. The patient notes that she was at the ED two days ago and was given pain medicine to help. She reports that it hasn't been working and that she tried Tylenol with the pain medications with no relief. The patient report that since the last ED visit she has started vomiting. She denies a fever, any belly pain prior to this, swelling in her legs , recent injuries or trauma, back pain, abnormal vaginal discharge, and recent long trips. The patient reports that she has a history of ovarian cysts. She notes that she takes control. She states that her LNMP was last week. Source of History: patient Onset: three days ago Position: abdomen (lower) Symptom Intensity: 3/10 Timing: other (episode) Associated Symptoms: + vomiting, No fevers, No back pain Note: The patient denies any belly pain prior to this, swelling in her legs, recent injuries or trauma, abnormal vaginal discharge, and recent long trips. Review of Systems See HPI for pertinent positives & negatives. A total of 10 systems reviewed and were otherwise negative. Past Medical & Surgical Medical Problems: (1) Gastroenteritis (2) Mitral valve prolapse (3) SVT (supraventricular tachycardia) Family History Gallbladder disease Social History Smoking Status: Never Smoker Alcohol Use: occasionally Marital Status: Housing Status: lives with family Occupation Status: employed Current/Historical Medications Scheduled Control Pills ( Control Pills), 1 TAB PO DAILY Ondasetron Odt (Zofran Odt), 4 MG SL Q6H Scheduled PRN Ibuprofen (Motrin), 400 MG PO Q6H PRN for Pain Oxycodone Immediate Rel Tab (Roxicodone Ir), 1 TAB PO Q6 PRN for Severe Pain Miscellaneous Medications Acetaminophen Tab (Tylenol), 325 MG PO Allergies Coded Allergies: Sulfa Drugs (Unverified Allergy, Unknown, UNKNOWN, 03/06/16) Physical Exam Vital Signs Date Time Temp Pulse Resp B/P (MAP) Pulse Ox O2 Delivery O2 Flow Rate FiO2 04/24/17 12:15 100 Room Air 04/24/17 11:04 72 18 124/76 100 04/24/17 09:08 36.6 60 17 134/83 100 Room Air Physical Exam GENERAL: Patient is uncomfortable appearing and in mild distress. HEENT: No acute trauma, normocephalic atraumatic, mucous membranes moist, no nasal congestion, no scleral icterus. NECK: No stridor, no adenopathy, no meningismus, trachea is midline. LUNGS: No dyspnea. Clear to auscultation and equal bilaterally. No wheeze, no rhonchi. HEART: Regular rate and rhythm. No murmurs, rubs, gallops appreciated. ABDOMEN: Soft, bowel sounds positive, no masses appreciated, no peritonitis, diffuse vague tenderness to palpation. BACK: No midline tenderness, no CVA tenderness EXTREMITIES: Normal motion all extremities, no cyanosis, no edema. NEUROLOGIC: Alert and oriented, no acute motor or sensory deficits, no focal weakness, cranial nerves grossly intact. SKIN: No rash, no jaundice, no diaphoresis. Medical Decision & Procedures Laboratory Results 04/24/17 09:35 Red Blood Count 4.09, Mean Corpuscular Volume 96.3, Mean Corpuscular Hemoglobin 31.8, Mean Corpuscular Hemoglobin Concent 33.0, Mean Platelet Volume 10.6, Neutrophils (%) (Auto) 75.7, Lymphocytes (%) (Auto) 14.9, Monocytes (%) (Auto) 5.1, Eosinophils (%) (Auto) 3.9, Basophils (%) (Auto) 0.3, Neutrophils # (Auto) 5.37, Lymphocytes # (Auto) 1.06, Monocytes # (Auto) 0.36, Eosinophils # (Auto) 0.28, Basophils # (Auto) 0.02 04/24/17 09:35 Test 04/24/17 09:20 04/24/17 09:35 Urine Color YELLOW Urine Appearance CLEAR (CLEAR) Urine pH 8.5 (4.5-7.5) Urine Specific [place] 1.014 (1.000-1.030) Urine Protein NEG (NEG) Urine Glucose (UA) NEG (NEG) Urine Ketones NEG (NEG) Urine Occult Blood NEG (NEG) Urine Nitrite NEG (NEG) Urine Bilirubin NEG (NEG) Urine Urobilinogen NEG (NEG) Urine Leukocyte Esterase NEG (NEG) Urine WBC (Auto) 0 /hpf (0-5) Urine RBC (Auto) 0-4 /hpf (0-4) Urine Hyaline Casts (Auto) 0 /lpf (0-5) Urine Epithelial Cells (Auto) 0-5 /lpf (0-5) Urine Bacteria (Auto) NEG (NEG) Urine Test NEG (NEG) White Blood Count 7.10 K/uL (4.8-10.8) Red Blood Count 4.09 M/uL (4.2-5.4) Hemoglobin 13.0 g/dL (12.0-16.0) Hematocrit 39.4 % (37-47) Mean Corpuscular Volume 96.3 fL (80-100) Mean Corpuscular Hemoglobin 31.8 pg (25-34) Mean Corpuscular Hemoglobin Concent 33.0 g/dl (32-36) Platelet Count 139 K/uL (130-400) Mean Platelet Volume 10.6 fL (7.4-10.4) Neutrophils (%) (Auto) 75.7 % Lymphocytes (%) (Auto) 14.9 % Monocytes (%) (Auto) 5.1 % Eosinophils (%) (Auto) 3.9 % Basophils (%) (Auto) 0.3 % Neutrophils # (Auto) 5.37 K/uL (1.4-6.5) Lymphocytes # (Auto) 1.06 K/uL (1.2-3.4) Monocytes # (Auto) 0.36 K/uL (0.11-0.59) Eosinophils # (Auto) 0.28 K/uL (0-0.5) Basophils # (Auto) 0.02 K/uL (0-0.2) RDW Standard Deviation 45.6 fL (36.4-46.3) RDW Coefficient of Variation 13.0 % (11.5-14.5) Immature Granulocyte % (Auto) 0.1 % Immature Granulocyte # (Auto) 0.01 K/uL (0.00-0.02) Erythrocyte Sedimentation Rate 2 mm/hr (0-21) D-Dimer 350 ug/L FEU (0-500) Anion Gap 6.0 mmol/L (3-11) Est Creatinine Clear Calc Drug Dose 86.6 ml/min Estimated GFR () 118.6 Estimated GFR (Non- 102.3 BUN/Creatinine Ratio 9.2 (10-20) Calcium Level 8.6 mg/dl (8.5-10.1) Total Bilirubin 0.7 mg/dl (0.2-1) Direct Bilirubin 0.2 mg/dl (0-0.2) Aspartate Amino Transf (AST/SGOT) 15 U/L (15-37) Alanine Aminotransferase (ALT/SGPT) 27 U/L (12-78) Alkaline Phosphatase 54 U/L (45-117) Total Creatine Kinase 93 U/L (26-192) C-Reactive Protein 0.30 mg/dl (0-0.29) Total Protein 7.0 gm/dl (6.4-8.2) Albumin 4.0 gm/dl (3.4-5.0) Lipase 71 U/L (73-393) Monoscreen NEG (NEG) Laboratory results as reviewed by me. Medications Administered Medications (Trade) Dose Ordered Sig/Ephra[place] Route Start Time Stop Time Status Last Admin Dose Admin Sodium Chloride 1,000 ml @ 999 mls/hr Q1H1M STAT IV 04/24/17 09:28 04/24/17 10:28 DC 04/24/17 09:51 999 MLS/HR Lorazepam (Ativan Inj) 0.5 mg NOW STAT IV 04/24/17 09:28 04/24/17 09:30 DC 04/24/17 09:54 0.5 MG Morphine Sulfate (MoRPHine SULFATE INJ) 4 mg NOW STAT IV 04/24/17 09:28 04/24/17 09:30 DC 04/24/17 09:58 4 MG Ondansetron HCl (Zofran Inj) 4 mg NOW STAT IV 04/24/17 09:28 04/24/17 09:30 DC 04/24/17 09:52 4 MG ED Course 0923: The patient was evaluated in room B6. A complete history and physical exam was performed. 28: Ordered Zofran inj 4 mg IV, Morphine Sulfate 4 mg IV, Ativan Inj 0.5 mg IV , NSS 1000 ml @ 999 mls/hr IV. 1117: I reevaluated the patient and she states her pain has improved. She reports that she is not comfortable going home. 1128: Discussed the patient's case with Dr. Lopez. The patient will be evaluated for further treatment and disposition. Medical Decision Medication Reconciliation: I attest that I have personally reviewed the patient 's current medication list. Blood pressure screening: Patient was found to have a mildly elevated blood pressure, likely secondary to pain though this willl be monitored by hospitalist. 32 yr old female with 4 days of intractable abdominal pain now associated with vomiting. This is now 3rd visit to ED. Already with extensive labs and imaging including CT abdo/pel with findings of enlarged spleen and some kajal- portal edema. Labs once again unremarkable including negative inflammatory markers and mono. Not ischemic pain in nature nor evidence of GI bleed. Symptoms not consistent with PID/Torsion as more diffuse in nature. I feel that she will likely need further monitoring at inpatient as pain has continued despite attempts at treating as an outpatient. Further testing imaging per hospitalist service. I have discussed this plan with mother and patient and they are both agreeable to this plan. She is stable and not septic nor does she have surgical exam at this time. Consults Time Called: 1126 Consulting Physician: Dr. Lopez Returned Call: [phone] Discussed the patient's case with Dr. Lopez. The patient will be evaluated for further treatment and disposition. Impression Primary Impression: Intractable abdominal pain Scribe Attestation The scribe's documentation has been prepared under my direction and personally reviewed by me in its entirety. I confirm that the note above accurately reflects all work, treatment, procedures, and medical decision making performed by me. Departure Information Dispostion Being Evaluated By Hospitalist Referrals Kristin Jerome D.O. (PCP) Patient Instructions My [facility]
[2017-04-24 23:09] VITALS: BP 127/82; PULSE 65; TEMP 36.7; O2SAT 100
[2017-04-25] MEDS: KETOROLAC TROMETHAMINE 15 MG/ML VIAL IV PRN ×3 (04:44→20:13)
[2017-04-25] MEDS ORDERED: NURSING VERBAL MED ORDER ONE (06:00)
[2017-04-25] MEDS ORDERED: TRAMADOL HCL 50 MG TAB PO ONE ×2 (06:15→22:00)
[2017-04-25] MEDS: NSS + 20MEQ KCL 1000ML 1,000 ML IV SCH ×2 (06:19→18:27)
[2017-04-25 06:26] LABS: HEMATOCRIT 35.3 % (37-47); MEAN CELL VOLUME 95.7 fL (80-100); MEAN CORPUSCULAR HEMOGLOBIN 32.5 pg (25-34); MEAN PLATELET VOLUME 10.8 fL (7.4-10.4); PLATELET COUNT 114 K/uL (130-400); RED BLOOD COUNT 3.69 M/uL (4.2-5.4); WHITE BLOOD COUNT 5.62 K/uL (4.8-10.8)
[2017-04-25 07:02] LABS: BUN/CREATININE RATIO 6.6 (10-20); CALCIUM 7.8 mg/dl (8.5-10.1); CREATININE 0.62 mg/dl (0.60-1.20); MAGNESIUM 1.9 mg/dl (1.8-2.4); POTASSIUM 3.9 mmol/L (3.5-5.1)
[2017-04-25 08:30] VITALS: O2SAT 99
[2017-04-25 09:00] VITALS: BP 121/79; PULSE 73; TEMP 36.5; O2SAT 100
--- NOTE | 2017-04-25 11:24 | Progress Note ---
Internal Med Progress Note Date of Service: Apr 25, 2017. Provider Documentation: SUBJECTIVE: Seen and examined at bedside. States having lower abdominal pain which is much improved. Had 1 episode of vomiting this morning. Also reports constipation. Denies chest pain, SOB. OBJECTIVE: Vital Signs-as noted below Physical Exam: General Appearance:Moderately built and nourished, no apparent distress Head: normocephalic, Atraumatic Eyes: normal inspection, EOMI, PERRL Neck: supple, Trachea midline Respiratory/Chest: Normal breath sounds, CTA Cardiovascular: S1, S2, No murmur Abdomen/GI:Soft, Non tender, Bowel sounds present Extremities/Musculoskelatal:normal inspection, no edema Neurologic/Psych:grossly no focal neurological deficits Skin: normal color, warm Lab data as noted below. ASSESSMENT & PLAN: Abdominal Pain/nausea and vomiting: likely secondary to gastroenteritis Abd pain is improving. Continue IV fluids CT ABD: No signs of bowel obstruction, mild splenomegaly Advance diet as tolerated Give Maalox for dyspepsia Start colace PRN for constipation Mild splenomegaly: Monospot test is negative May need repeat CAT scan or ultrasound as outpatient H/O mitral valve prolapse: Stable GI Px: Maalox and Mylanta. DVT Px: SCDs/Encourage ambulation Code status: full code Disposition: Plan to discharge tomorrow if stable Vital Signs: Date Time Temp Pulse Resp B/P (MAP) Pulse Ox O2 Delivery O2 Flow Rate FiO2 04/25/17 09:00 36.5 73 20 121/79 (93) 100 Room Air 04/25/17 08:30 99 Room Air 04/25/17 00:00 Room Air 04/24/17 23:09 36.7 65 18 127/82 (97) 100 Room Air 04/24/17 20:00 Room Air 04/24/17 15:55 36.3 61 18 110/72 (85) 100 Room Air 04/24/17 15:40 Room Air 04/24/17 14:00 36.6 58 16 144/83 (103) 100 Room Air 04/24/17 13:58 36.6 65 18 124/84 99 04/24/17 13:00 65 18 120/82 99 04/24/17 12:15 100 Room Air Lab Results: Results Past 24 Hours Test 04/25/17 05:38 Range/Units White Blood Count 5.62 4.8-10.8 K/uL Red Blood Count 3.69 4.2-5.4 M/uL Hemoglobin 12.0 12.0-16.0 g/dL Hematocrit 35.3 37-47 % Mean Corpuscular Volume 95.7 80-100 fL Mean Corpuscular Hemoglobin 32.5 25-34 pg Mean Corpuscular Hemoglobin Concent 34.0 32-36 g/dl RDW Standard Deviation 45.0 36.4-46.3 fL RDW Coefficient of Variation 12.9 11.5-14.5 % Platelet Count 114 130-400 K/uL Mean Platelet Volume 10.8 7.4-10.4 fL Sodium Level 140 136-145 mmol/L Potassium Level 3.9 3.5-5.1 mmol/L Chloride Level 110 98-107 mmol/L Carbon Dioxide Level 24 21-32 mmol/L Anion Gap 6.0 3-11 mmol/L Blood Urea Nitrogen 4 7-18 mg/dl Creatinine 0.62 0.60-1.20 mg/dl Est Creatinine Clear Calc Drug Dose 106.2 ml/min Estimated GFR () 136.4 Estimated GFR (Non- 117.6 BUN/Creatinine Ratio 6.6 10-20 Random Glucose 95 70-99 mg/dl Calcium Level 7.8 8.5-10.1 mg/dl Magnesium Level 1.9 1.8-2.4 mg/dl
[2017-04-25] MEDS: DOCUSATE SODIUM 100 MG CAP PO PRN (14:27)
[2017-04-25 15:19] VITALS: BP 117/77; PULSE 65; TEMP 36.6; O2SAT 100
[2017-04-25 16:00] VITALS: O2SAT 100
[2017-04-25 22:00] VITALS: BP 129/83; PULSE 64; TEMP 36.8; O2SAT 99
[2017-04-26] VITALS: O2SAT 99
[2017-04-26 00:04] VITALS: BP 129/86; PULSE 62; TEMP 36.9; O2SAT 99
[2017-04-26] MEDS: KETOROLAC TROMETHAMINE 15 MG/ML VIAL IV PRN (05:30)
[2017-04-26 07:06] VITALS: BP 120/72; PULSE 76; TEMP 37; O2SAT 99
[2017-04-26] MEDS: DOCUSATE SODIUM 100 MG CAP PO PRN (07:52)
--- NOTE | 2017-04-26 09:28 | Progress Note ---
Internal Med Progress Note Date of Service: Apr 26, 2017. Provider Documentation: SUBJECTIVE: Seen and examined at bedside. States abdominal pain, nausea and vomiting resolved. Denies chest pain, SOB. OBJECTIVE: Vital Signs-as noted below Physical Exam: General Appearance:Moderately built and nourished, no apparent distress Head: normocephalic, Atraumatic Eyes: normal inspection, EOMI, PERRL Neck: supple, Trachea midline Respiratory/Chest: Normal breath sounds, CTA Cardiovascular: S1, S2, No murmur Abdomen/GI:Soft, Non tender, Bowel sounds present Extremities/Musculoskelatal:normal inspection, no edema Neurologic/Psych:grossly no focal neurological deficits Skin: normal color, warm Lab data as noted below. ASSESSMENT & PLAN: Abdominal Pain/nausea and vomiting: likely secondary to gastroenteritis Abd pain improved S/P IV fluids CT ABD: No signs of bowel obstruction, mild splenomegaly Advance diet as tolerated Give Maalox for dyspepsia Continue colace PRN for constipation Mild splenomegaly: Monospot test is negative May need repeat CAT scan or ultrasound as outpatient H/O mitral valve prolapse: Stable DVT Px: SCDs/Encourage ambulation Code status: full code Disposition: Plan to discharge home today Follow up with 04/30/17 at 10:45am Get repeat Abdominal CT scan or ultrasound as outpatient if symptoms persistent and per recommendations of your doctor. Vital Signs: Date Time Temp Pulse Resp B/P (MAP) Pulse Ox O2 Delivery O2 Flow Rate FiO2 04/26/17 07:06 37.0 76 18 120/72 (88) 99 Room Air 04/26/17 00:04 36.9 62 18 129/86 (100) 99 Room Air 04/26/17 00:00 99 Room Air 04/25/17 22:00 36.8 64 16 129/83 (98) 99 Room Air 04/25/17 20:00 Room Air 04/25/17 16:00 100 Room Air 04/25/17 15:19 36.6 65 18 117/77 (90) 100 Room Air
[2017-04-26] MEDS ORDERED: CLC100X PO (09:47)
--- NOTE | 2017-04-26 09:50 | Discharge Summary ---
Discharge Summary Date of Service Apr 26, 2017. Discharge Summary Admission Date: Apr 24, 2017 at 12:20 Discharge Date: Apr 26, 2017 Discharge Disposition: Home Principal Diagnosis: Gastroenteritis Procedures: None Consultations: None Pending Studies/Follow-Up: Follow up with 04/30/17 at 10:45am Get repeat Abdominal CT scan or ultrasound as outpatient if symptoms persistent and per recommendations of your doctor. Seek immediate medical attention if your symptoms reoccur or worsen Medication Reconciliation New Medications: Docusate Sodium (Docusate Sodium) 100 Mg Cap 100 MG PO BID PRN for Constipation for 7 Days, #14 CAP Continued Medications: Acetaminophen Tab (Tylenol) 325 Mg Tab 325 MG PO, TAB Control Pills ( Control Pills) Tab 1 TAB PO DAILY, TAB Ibuprofen (Motrin) 400 Mg Tab 400 MG PO Q6H PRN for Pain, TAB Ondasetron Odt (Zofran Odt) 4 Mg Tab 4 MG SL Q6H for Nausea, #6 TAB Oxycodone Immediate Rel Tab (Roxicodone Ir) 5 Mg Tab 1 TAB PO Q6 PRN for Severe Pain, #10 TAB Admission Information HPI (per Admitting provider): CHIEF COMPLAINT: Lower abdominal pain with nausea and vomiting since Sunday last. HISTORY OF PRESENT COMPLAINT: She is a 32-year-old female without significant past medical history, apparently has been complaining of lower abdominal pain since Sunday evening. She did not eat anything special before that and nobody else has been affected in the family. She had vomited about 3 times since Sunday and she came to ER Sunday and again ER on Sunday and she has had an ultrasound and also CT scan of the abdomen and pelvis as of today. Ultrasound came out negative except physiological amount of pelvic fluid and CT scan did show she may have mild splenic enlargement, but no other findings. Her labs were unremarkable. Given the ongoing problem with abdominal pain and vomiting with probable diagnosis of gastroenteritis, she was admitted to medical floor for continuation of care. Denies to any fever, chills or rigors. Denies to any problem with urine. Has not been moving her bowel. No cough, fever or chills. No shortness of breath. No headache. Has nausea and vomiting. No numbness or tingling in the extremities. No problem with her periods as well. Physical Exam (per Admitting): PHYSICAL EXAMINATION: GENERAL: In the Emergency Room, she was not in any acute distress. VITAL SIGNS: Temperature 36.6, pulse 72, blood pressure 124/76, saturation 100% on room air. HEENT: Unremarkable. NECK: Supple. No JVD, no bruit. CHEST: Clear to auscultation bilaterally. HEART: S1, S2 regular. No murmur. ABDOMEN: Soft, benign, mildly tender in the lower quadrants. No guarding or rigidity. Bowel sounds present. EXTREMITIES: Negative for any edema. MUSCULOSKELETAL: No acute arthritis. CENTRAL NERVOUS SYSTEM: She is alert, awake, oriented x3, and no focal sensory and/or motor deficit appreciated. Hospital Course Abdominal Pain/nausea and vomiting: likely secondary to gastroenteritis Abd pain improved S/P IV fluids CT ABD: No signs of bowel obstruction, mild splenomegaly Advance diet as tolerated Give Maalox for dyspepsia Continue colace PRN for constipation Mild splenomegaly: Monospot test is negative May need repeat CAT scan or ultrasound as outpatient H/O mitral valve prolapse: Stable DVT Px: SCDs/Encourage ambulation Code status: full code Disposition: Plan to discharge home today Follow up with 04/30/17 at 10:45am Get repeat Abdominal CT scan or ultrasound as outpatient if symptoms persistent and per recommendations of your doctor. Total time spent on discharge = 35 minutes This includes examination of the patient, discharge planning, medication reconciliation, and communication with other providers. Discharge Instructions Discharge Instructions Date of Service Apr 26, 2017. Admission Reason for Admission: Gastroentteritis Discharge Discharge Diagnosis / Problem: Gastroenteritis Discharge Goals Goal(s): Decrease discomfort, Improve function Activity Recommendations Activity Limitations: resume your previous activity Exercise/Sports Limitations: as tolerated . Instructions / Follow-Up Instructions / Follow-Up Follow up with 04/30/17 at 10:45am Get repeat Abdominal CT scan or ultrasound as outpatient if symptoms persistent and per recommendations of your doctor. Seek immediate medical attention if your symptoms reoccur or worsen Current Hospital Diet Patient's current hospital diet: Regular Diet Discharge Diet Recommended Diet: Regular Diet Pending Studies Studies pending at discharge: no Medical Emergencies . Who to Call and When: Medical Emergencies: If at any time you feel your situation is an emergency, please call 911 immediately. . Non-Emergent Contact Non-Emergency issues call your: Primary Care Provider Call Non-Emergent contact if: you have a fever, your pain is not controlled, your pain is worsening, your pain is unusual for you, you have any medication questions . . "Provider Documentation" section prepared by Delfino Nava. . VTE Core Measure Inpt VTE Proph given/why not?: SCD's
[2017-04-26] MEDS ORDERED: POLYETHYLENE (MIRALAX) 17 GM PACK PO ONE (09:57)
[2017-04-26 10:11] VITALS: BP 120/72; PULSE 76; TEMP 37; O2SAT 99
== END 2017-04-26 11:24 | disposition home or self-care (01) ==
LOC: C.EDB 09:00 → C.4E 12:20 → ENRESERV 13:05 → C.MS2W 04-25 21:52
PROVIDERS: ADMIT Internal Medicine; ATTEND Internal Medicine
DX: K52.9 Noninfective gastroenteritis and colitis, unspecified (principal)

== ENCOUNTER → 2017-05-25 | Outpatient (CLI) | payer OTHER ==
[~2017-05-25] MED LIST changes: +ACET325T96 PO; +CLC100X PO; +IBUP-1459 PO
== END | disposition home or self-care (01) ==
LOC: C.PAPS 15:55
PROVIDERS: ATTEND Obstetrics & Gynecology
DX: Z12.4 Encounter for screening for malignant neoplasm of cervix (principal); Z11.51 Encounter for screening for human papillomavirus (HPV)

== ENCOUNTER → 2017-06-12 | Outpatient (CLI) | payer OTHER | END | disposition home or self-care (01) | LOC: C.PATHSPEC 08:20 | PROVIDERS: ATTEND Obstetrics & Gynecology | DX: R87.612 Low grade squamous intraepithelial lesion on cytologic smear of cervix (LGSIL) (principal); N87.0 Mild cervical dysplasia ==

== ENCOUNTER → 2017-12-17 | Outpatient (CLI) | payer OTHER ==
[~2017-12-17] MED LIST changes: +ACET-1693 PO; -ACET325T96 PO; -ONDA4TAB10 SL; -OXYC1TAB3 PO
== END | disposition home or self-care (01) ==
LOC: C.PAPS 08:53
PROVIDERS: ATTEND Obstetrics & Gynecology
DX: N87.0 Mild cervical dysplasia (principal)

== ENCOUNTER → 2018-05-27 | Outpatient (CLI) | payer OTHER | END | disposition home or self-care (01) | LOC: C.PAPS 16:41 | PROVIDERS: ATTEND Obstetrics & Gynecology | DX: Z01.419 Encounter for gynecological examination (general) (routine) without abnormal findings (principal); Z87.42 Personal history of other diseases of the female genital tract ==

== ENCOUNTER 2024-10-07 22:37 | Observation (INO) ==
[2024-10-07 23:07] LABS: Basophils # (auto) 0.04 K/uL (0.00-0.20); Basophils % (auto) 0.6 %; Eosinophils # (auto) 0.21 K/uL (0.00-0.50); Eosinophils % (auto) 3.1 %; Hematocrit (blood only) 41.7 % (37.0-47.0); Immature Granulocytes # (auto) 0.01 K/uL (0.01-0.20); Immature Granulocytes % (auto) 0.1 %; Lymphocytes # (auto) 2.64 K/uL (1.20-3.40); Lymphocytes % (auto) 39.4 %; Mean Corpuscular Hemoglobin 32.4 pg (25.0-34.0); Mean Corpuscular Hgb Conc 33.6 g/dL (32.0-36.0); Mean Corpuscular Volume 96.5 fL (80.0-100.0); Mean Platelet Volume 10.4 fL (9.4-12.4); Monocytes # (auto) 0.58 K/uL (0.11-0.59); Monocytes % (auto) 8.7 %; Neutrophils # (auto) 3.22 K/uL (1.40-6.50); Neutrophils % (auto) 48.1 %; Platelet Count 194 K/uL (130-400); RDW Coefficient of Variation 12.4 % (11.5-14.5); RDW Standard Deviation 44.8 fL (36.4-46.3); Red Blood Count 4.32 M/uL (4.20-5.40)
[2024-10-07 23:26] LABS: Albumin Globulin Ratio 1.6 (0.9-2); Albumin Level 4.4 gm/dl (3.4-5.0); BUN Creatinine Ratio 19.5 (10-20); Bilirubin,Total 0.4 mg/dl (0.2-1.0); Calcium 9.5 mg/dl (8.6-10.3); Creatinine Clr Calc Pharmacy 81.2 ml/min; Globulin 2.8 gm/dl (2.5-4.0); Potassium 4.2 mmol/L (3.5-5.1); Total Protein 7.2 gm/dl (6.0-8.3)
[2024-10-07 23:32] LABS: Troponin I High Sensitivity 26.7 pg/ml (0-14)
[2024-10-07 23:52] LABS: Magnesium 2.1 mg/dl (1.7-2.4)
[2024-10-08 00:08] LABS: Thyroid Stimulating Hormone 3.963 uIu/ml (0.300-4.500)
--- NOTE | 2024-10-08 01:05 | XRay Report ---
EXAM: XR chest 1V portable CLINICAL HISTORY: CHEST PAIN [facility] TECHNIQUE: X-ray image of the chest is obtained in AP portable projection. COMPARISON: 03/06/2016 CR. FINDINGS: Pulmonary Parenchyma: Hyperinflated both lungs. Prominent bronchovascular markings are noted in both lungs. Few small nodular opacities are seen in the right lung upper and lower zones, one of them measures 7 mm which is projecting over the right seventh rib posteriorly. No evidence of consolidation, or collapse. No evidence of pleural effusion or pleural thickening. Heart and Mediastinum: Heart size and shape are normal. No mediastinal widening or masses. No hilar or mediastinal lymphadenopathy. Bony Thorax: Bony thorax appears intact without fractures or deformities. Soft Tissues: Soft tissues overlying the chest wall are unremarkable. IMPRESSION: 1. Hyperinflated both lungs. 2. Prominent bronchovascular markings in both lungs. Needs clinical correlation. 3. Few small nodular opacities in right lung upper and lower zones, one of them measures 7 mm which is projecting over the right seventh rib posteriorly. 4. The findings are interval new. [facility]'s ER was called at [phone] at 12:00 AM SUPERVISOR ROLLING ROOM, 10/08/2024, and Nurse Grace was informed regarding the presence of Important Medical Findings on this report. Electronically signed by Anshu Gonzalez 10-08-2024 01:05 AM
--- NOTE | 2024-10-08 01:40 | Emergency Department Note ---
Impression & Plan Heart palpitations, Elevated troponin, Tachycardia ED Provider Note CHIEF COMPLAINT: Palpitations x 5 hours HISTORY OF PRESENT ILLNESS: This 39-year-old female patient presents to the emergency department via private vehicle accompanied by male for evaluation of palpitations. Symptoms have been ongoing for about 5 hours. Patient states that symptoms started about 5:30 PM. The patient states that she does have a history of "irregular heartbeat". She states she takes metoprolol daily due to this. She does not follow with cardiology. She states that has been quite sometime she has had any outpatient evaluation or workup due to the palpitations. She states her last workup was greater than 20 years ago. Patient denies any recent leg pain or swelling. She denies any associated chest pain or shortness of breath. Patient denies any abdominal pain, nausea, vomiting. She has not recently been ill. She states she was driving at the onset of the symptoms patient is already set exertion or stress. She states her most recent episode of similar symptoms was about a year ago and lasted much shorter period of time that this did. Upon the time of my evaluation, the patient denies any current complaints. History provided by: Patient REVIEW OF SYSTEMS: A 10 system review of systems was performed with positives and pertinent negatives listed in the history of present illness. All other systems were reviewed and are negative. ALLERGIES: Sulfa PHYSICAL EXAM: VITALS: Vitals are noted on the nurse's note and reviewed by myself. GENERAL: This is a 39-year-old female, in no acute distress, nondiaphoretic, well-developed well-nourished. SKIN: The skin was without rashes, erythema, edema, or bruising. There is no tenting of the skin. Capillary refill less than 2 seconds. HEAD: Normocephalic atraumatic. EARS: External auditory canals clear, tympanic membranes pearly krueger without erythema or effusion bilaterally. No hemotympanum. Negative serrano sign EYES: Pupils equal round and reactive to light and accommodation. Conjunctivae without injection, sclerae without icterus. Extraocular movements intact. NOSE: Patent, turbinates without inflammation or discharge. No sinus tenderness. MOUTH: Mucous membranes moist. Tonsils are not enlarged. Pharynx without erythema or exudate. Uvula midline. Airway patent. Tongue does not deviate. NECK: Supple without nuchal rigidity. No lymphadenopathy. Cervical spine is nontender. No JVD. HEART: Regular rate and rhythm without murmurs gallops or rubs. LUNGS: Clear to auscultation bilaterally without wheezes, rales or rhonchi. No retractions or accessory muscle use. ABDOMEN: Positive bowel sounds x 4. Soft, nontender, without masses or organomegaly. Barrera sign negative. No guarding or rebound tenderness. MUSCULOSKELETAL: No muscle atrophy, erythema, or edema noted. Full range of motion without joint tenderness in all extremities. No tenderness to palpation. Normal gait. Strength 5/5 throughout. NEURO: Patient was alert and oriented to person place and time. Normal sensation to light and sharp touch. Deep tendon reflexes 2+ throughout. No focal neurological deficits. An order was placed for continuous hospital monitor. The monitor showed a normal sinus rhythm at a ventricular rate of 98 bpm, per my interpretation. EKG was reviewed by myself and found to be normal sinus rhythm at a rate of 97 beats per minute and per my interpretation reveals no ST elevation or depression. No T wave inversion. When compared to EKG completed on 08/16/2022, no significant change was identified. Imaging as interpreted by myself and the radiologist revealed no acute abnormality, with radiologist interpretation as above. I agree with the radiologist's findings as based upon my independent interpretation. EMERGENCY DEPARTMENT COURSE: The patient was seen and evaluated as above. The patient presents due to reported tachycardia for about 5 hours. Patient states her heart rate was between 160 and 180 per her Apple Watch. Upon arrival to the emergency department, the tachycardia had resolved. EKG and hospital monitor without dysrhythmia or other acute abnormality. Initial orders were placed by triage nursing staff. IV access was obtained, labs are drawn. Labs reviewed by me. There is no leukocytosis or concerning anemia. No thrombocytopenia. Renal, hepatic function and electrolytes without significant abnormality. Initial troponin was elevated at 26.7. TSH was 3.963, lipase was 18. EKG and chest x-ray as above. No acute findings. Delta troponin was completed was elevated at 60.5. I discussed the findings and workup completed here in the emergency department with the patient and her visitor at bedside. I did recommend inpatient care given the reported tachycardia over an extended period of time and elevated troponin which continues to rise. The patient was agreeable. I discussed case with the information technology program manager. I discussed the case with Dr. Oconer, [facility] hospitalist physician. He did agree to evaluate the patient for admission. Please see hospitalist dictation regarding ongoing management final disposition of this patient. Case was discussed with the attending physician. This visit is during a period of high volume and high acuity in the emergency department. I attest that I have personally reviewed the patient medication list. I attest that I have reviewed the patient's blood pressure and it was found to be normal GCS: 15 In the evaluation and treatment of this patient the following differential diagnoses were entertained: Premature contractions, electrolyte abnormality, cardiac dysrhythmia, thyroid dysfunction, pulmonary embolism, infection, gastrointestinal, as well as other pathologies. The chart was completed utilizing [employer] Speech voice recognition software. Grammatical errors, random word insertions, pronoun errors, and incomplete sentences are an occasional consequence of this system due to software limitations, ambient noise, and hardware issues. Any formal questions or concerns about the content, text, or information contained within the body of this dictation should be directly addressed to the provider for clarification. Past Med/Surg History Problem List (Updated 10/08/24 @ 03:50 by Aye Andrea PA-C) Tachycardia (Acute) Elevated troponin (Acute) Heart palpitations (Acute) No chronic diseases present No significant past surgical history Gastroenteritis Medical History SVT (supraventricular tachycardia) Hx of splenomegaly Surgical History Hx of elbow surgery Family History Other Gallbladder disease Social History Smoking Status: Never smoker Preferred Language: Burkinan marital status: Current Living Situation: Alone and Family current occupational status: employed Feels Safe at Home: Yes Allergies Allergies Allergy/AdvReac Type Severity Reaction Status Date / Time Sulfa (Sulfonamide Allergy Unknown HAPPENED Verified 06/03/23 21:05 Antibiotics) A SMALL CHILD Home Meds Home Medications Medication Instructions Recorded Confirmed metoprolol succinate 25 mg 25 mg PO QAM 08/17/22 10/08/24 tablet,extended release 24 hr acetaminophen 500 mg tablet 500 mg PO DIRECTED PRN Pain 06/03/23 10/08/24 (Tylenol Extra Strength) bismuth subsalicylate 262 mg/15 mL 524 mg PO DIRECTED PRN Gi Upset 06/03/23 10/08/24 oral suspension (Pepto-Bismol) calcium carbonate (Tums) 200 - 400 mg PO DIRECTED PRN 06/03/23 10/08/24 HEARTBURN/GI UPSET levonorgestrel-ethinyl estradiol 1 tab PO QAM 06/03/23 10/08/24 0.1 mg-20 mcg tablet loratadine 10 mg tablet (Claritin) 10 mg PO DAILY PRN Congestion 06/03/23 10/08/24 Results & Data (ED) Vital Signs Vital Signs - 24 hr 10/07/24 22:39 10/08/24 00:09 10/08/24 00:38 Temperature 36.7 C Temperature Source Temporal Artery Scan Pulse Rate 98 H Pulse Rate from SpO2 Sensor Respiratory Rate 18 Respiratory Effort / Characteristics Non-Labored Spontaneous Non-Labored Respiratory Depth Normal Normal Respiratory Pattern Regular Blood Pressure 135/83 Blood Pressure Mean 100 Pulse Oximetry 100 Oxygen Delivery Method Room Air Room Air Sepsis Recent Fever Within 48 Hours No Sepsis New/Unexplained Change in Mental Status N/A Sepsis Action Taken by Nursing No Action Required 10/08/24 00:40 10/08/24 00:41 10/08/24 00:51 Temperature Temperature Source Pulse Rate 79 98 H 70 Pulse Rate from SpO2 Sensor 72 Respiratory Rate 16 18 Respiratory Effort / Characteristics Respiratory Depth Respiratory Pattern Blood Pressure 120/72 Blood Pressure Mean 88 Pulse Oximetry 98 98 Oxygen Delivery Method Room Air Sepsis Recent Fever Within 48 Hours Sepsis New/Unexplained Change in Mental Status Sepsis Action Taken by Nursing 10/08/24 01:09 10/08/24 01:12 10/08/24 01:48 Temperature Temperature Source Pulse Rate 79 76 73 Pulse Rate from SpO2 Sensor 77 77 72 Respiratory Rate 18 22 19 Respiratory Effort / Characteristics Respiratory Depth Respiratory Pattern Blood Pressure Blood Pressure Mean Pulse Oximetry 97 98 98 Oxygen Delivery Method Sepsis Recent Fever Within 48 Hours Sepsis New/Unexplained Change in Mental Status Sepsis Action Taken by Nursing 10/08/24 02:00 10/08/24 02:06 10/08/24 02:21 Temperature Temperature Source Pulse Rate 70 74 Pulse Rate from SpO2 Sensor 70 73 Respiratory Rate 16 18 Respiratory Effort / Characteristics Non-Labored Respiratory Depth Normal Respiratory Pattern Blood Pressure Blood Pressure Mean Pulse Oximetry 100 97 Oxygen Delivery Method Sepsis Recent Fever Within 48 Hours Sepsis New/Unexplained Change in Mental Status Sepsis Action Taken by Nursing 10/08/24 02:21 10/08/24 02:33 10/08/24 02:57 Temperature Temperature Source Pulse Rate 75 77 Pulse Rate from SpO2 Sensor 76 76 Respiratory Rate 20 21 Respiratory Effort / Characteristics Respiratory Depth Respiratory Pattern Blood Pressure 134/98 Blood Pressure Mean 114 Pulse Oximetry 99 98 Oxygen Delivery Method Sepsis Recent Fever Within 48 Hours Sepsis New/Unexplained Change in Mental Status Sepsis Action Taken by Nursing 10/08/24 03:00 Temperature Temperature Source Pulse Rate 74 Pulse Rate from SpO2 Sensor 74 Respiratory Rate 22 Respiratory Effort / Characteristics Respiratory Depth Respiratory Pattern Blood Pressure Blood Pressure Mean Pulse Oximetry 98 Oxygen Delivery Method Sepsis Recent Fever Within 48 Hours Sepsis New/Unexplained Change in Mental Status Sepsis Action Taken by Nursing Laboratory Data 10/08/24 03:02 10/07/24 22:50 Lab Results 10/07/24 10/08/24 10/08/24 Range/Units 22:50 00:31 03:02 WBC 6.70 5.12 (4.8-10.8) K/ul RBC 4.32 3.97 L (4.20-5.40) M/uL Hgb 14.0 12.6 (12.0-16.0) g/dl Hct 41.7 38.4 (37.0-47.0) % MCV 96.5 96.7 (80.0-100.0) fL MCH 32.4 31.7 (25.0-34.0) pg MCHC 33.6 32.8 (32.0-36.0) g/dL RDW Std Deviation 44.8 45.2 (36.4-46.3) fL RDW Coeff of Ruby 12.4 12.6 (11.5-14.5) % Plt Count 194 161 (130-400) K/uL MPV 10.4 10.4 (9.4-12.4) fL Immature Gran % (Auto) 0.1 0.2 % Neut % (Auto) 48.1 58.0 % Lymph % (Auto) 39.4 27.7 % Mcmullen % (Auto) 8.7 10.2 % Eos % (Auto) 3.1 3.1 % Baso % (Auto) 0.6 0.8 % Neut # (Auto) 3.22 2.97 (1.40-6.50) K/uL Lymph # (Auto) 2.64 1.42 (1.20-3.40) K/uL Mcmullen # (Auto) 0.58 0.52 (0.11-0.59) K/uL Eos # (Auto) 0.21 0.16 (0.00-0.50) K/uL Baso # (Auto) 0.04 0.04 (0.00-0.20) K/uL Immature Gran # (Auto) 0.01 0.01 (0.01-0.20) K/uL Sodium 141 (136-145) mmol/L Potassium 4.2 (3.5-5.1) mmol/L Chloride 107 (98-107) mmol/L Carbon Dioxide 26 (21-32) mmol/L Anion Gap 8 (3-11) BUN 16 (6-23) mg/dl Creatinine 0.82 (0.6-1.2) mg/dl Est Cr Clr Drug Dosing 81.2 ml/min eGFR 92.10 BUN/Creatinine Ratio 19.5 (10-20) Glucose 126 H (70-99(Fasting)) mg/dl Calcium 9.5 (8.6-10.3) mg/dl Magnesium 2.1 (1.7-2.4) mg/dl Total Bilirubin 0.4 (0.2-1.0) mg/dl AST 26 (13-39) U/L ALT 17 (7-52) U/L Alkaline Phosphatase 51 (34-104) U/L Troponin I High Sens 26.7 H 60.5 H* D (0-14) pg/ml Total Protein 7.2 (6.0-8.3) gm/dl Albumin 4.4 (3.4-5.0) gm/dl Globulin 2.8 (2.5-4.0) gm/dl Albumin/Globulin Ratio 1.6 (0.9-2) Lipase 18 (11-82) U/L TSH 3.963 (0.300-4.500) uIu/ml Imaging Data Radiologist's Impression: Chest X-Ray 10/07/24 22:42 EXAM: XR chest 1V portable CLINICAL HISTORY: CHEST PAIN [facility] TECHNIQUE: X-ray image of the chest is obtained in AP portable projection. COMPARISON: 03/06/2016 CR. FINDINGS: Pulmonary Parenchyma: Hyperinflated both lungs. Prominent bronchovascular markings are noted in both lungs. Few small nodular opacities are seen in the right lung upper and lower zones, one of them measures 7 mm which is projecting over the right seventh rib posteriorly. No evidence of consolidation, or collapse. No evidence of pleural effusion or pleural thickening. Heart and Mediastinum: Heart size and shape are normal. No mediastinal widening or masses. No hilar or mediastinal lymphadenopathy. Bony Thorax: Bony thorax appears intact without fractures or deformities. Soft Tissues: Soft tissues overlying the chest wall are unremarkable. IMPRESSION: 1. Hyperinflated both lungs. 2. Prominent bronchovascular markings in both lungs. Needs clinical correlation. 3. Few small nodular opacities in right lung upper and lower zones, one of them measures 7 mm which is projecting over the right seventh rib posteriorly. 4. The findings are interval new. [facility]'s ER was called at [phone] at 12:00 AM PHYSICIAN OFFICE ASSISTANT, 10/08/2024, and Nurse Crystal was informed regarding the presence of Important Medical Findings on this report. Electronically signed by Anshu Gonzalez 10-08-2024 01:05 AM Discharge Plan Visit Data Chief Complaint: Cardiac Assessment Stated Complaint: RACING HEARTBEAT, SHAKEY ED Provider: Kendall Hernadez ED Midlevel Provider: Aye Andrea Discharge Problem: Heart palpitations, Elevated troponin, Tachycardia Patient Disposition: Being Evaluated by Hospitalist Prescriptions Prescriptions: No Action metoprolol succinate 25 mg Tablet Extended Release 24 Hr 25 mg PO QAM levonorgestrel-ethinyl estrad 0.1-20 mg-mcg tablet 1 tab PO QAM acetaminophen [Tylenol Extra Strength] 500 mg Tablet 500 mg PO DIRECTED PRN (Reason: Pain) bismuth subsalicylate [Pepto-Bismol] 262 mg/15 mL Suspension 524 mg PO DIRECTED PRN (Reason: Gi Upset) calcium carbonate [Tums] 200 mg calcium (500 mg) Tablet,Chewable 200 - 400 mg PO DIRECTED PRN (Reason: HEARTBURN/GI UPSET) loratadine [Claritin] 10 mg Tablet 10 mg PO DAILY PRN (Reason: Congestion)
[2024-10-08 03:25] LABS: Basophils # (auto) 0.04 K/uL (0.00-0.20); Basophils % (auto) 0.8 %; Eosinophils # (auto) 0.16 K/uL (0.00-0.50); Eosinophils % (auto) 3.1 %; Hematocrit (blood only) 38.4 % (37.0-47.0); Hemoglobin 12.6 g/dl (12.0-16.0); Immature Granulocytes # (auto) 0.01 K/uL (0.01-0.20); Immature Granulocytes % (auto) 0.2 %; Lymphocytes # (auto) 1.42 K/uL (1.20-3.40); Lymphocytes % (auto) 27.7 %; Mean Corpuscular Hemoglobin 31.7 pg (25.0-34.0); Mean Corpuscular Hgb Conc 32.8 g/dL (32.0-36.0); Mean Corpuscular Volume 96.7 fL (80.0-100.0); Mean Platelet Volume 10.4 fL (9.4-12.4); Monocytes # (auto) 0.52 K/uL (0.11-0.59); Monocytes % (auto) 10.2 %; Neutrophils # (auto) 2.97 K/uL (1.40-6.50); Platelet Count 161 K/uL (130-400); RDW Coefficient of Variation 12.6 % (11.5-14.5); RDW Standard Deviation 45.2 fL (36.4-46.3); Red Blood Count 3.97 M/uL (4.20-5.40); White Blood Count 5.12 K/ul (4.8-10.8)
--- NOTE | 2024-10-08 03:36 | History & Physical Report ---
Date of Service October 08, 2024 Assessment & Plan (1) Heart palpitations: Plan: Likely PSVT Patient NSR since arrival at the ER. 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 SCDs for now Full code Text document was generated using Denator voice recognition software. It may contain grammatical or spelling errors. Kindly contact undersigned for clarification of any documentation item in question. History of Present Illness Chief Complaint: Palpitations Primary Care Provider: Tiffanie Huffman PA-C History obtained from patient and records. Medical history significant for PSVT, mitral valve prolapse as per records, splenomegaly, ADHD. Last confinement 2016 for gastroenteritis. Patient with intermittent palpitations for about 5 hours yesterday afternoon. Similar to SVT attack. No actual chest pain or SOB. Compliant with home beta-marcella. Denies unusual stress at home or at work. Denies inordinate caffeine or decongestant intake. Just feeling fatigued. No recent tick bites. Medical History as above Surgical History : Dental surgery, arm abscess drainage Family History : Colon cancer, carcinoid tumor, heart disease Personal/Social history : Non-smoker, occasional EtOH intake, daycare work Allergies Allergy/AdvReac Type Severity Reaction Status Date / Time Sulfa (Sulfonamide Allergy Unknown HAPPENED Verified 06/03/23 21:05 Antibiotics) A SMALL CHILD Home Medications Medication Instructions Recorded Confirmed Type metoprolol succinate 25 mg 25 mg PO QAM 08/17/22 10/08/24 History tablet,extended release 24 hr acetaminophen 500 mg tablet 500 mg PO DIRECTED PRN Pain 06/03/23 10/08/24 History (Tylenol Extra Strength) bismuth subsalicylate 262 mg/15 mL 524 mg PO DIRECTED PRN Gi Upset 06/03/23 10/08/24 History oral suspension (Pepto-Bismol) calcium carbonate (Tums) 200 - 400 mg PO DIRECTED PRN 06/03/23 10/08/24 History HEARTBURN/GI UPSET levonorgestrel-ethinyl estradiol 1 tab PO QAM 06/03/23 10/08/24 History 0.1 mg-20 mcg tablet loratadine 10 mg tablet (Claritin) 10 mg PO DAILY PRN Congestion 06/03/23 10/08/24 History Past Med/Surg History Problem List (Updated 10/08/24 @ 03:50 by Aye Andrea PA-C) Tachycardia (Acute) Elevated troponin (Acute) Heart palpitations (Acute) No chronic diseases present No significant past surgical history Gastroenteritis Medical History SVT (supraventricular tachycardia) Hx of splenomegaly Surgical History Hx of elbow surgery Family History Other Gallbladder disease Social History Smoking Status: Never smoker Second Hand Exposure: No; Do You Dip or Chew Tobacco: No; Hx Alcohol Use: Yes Alcohol type: wine Hx Substance Use: No Preferred Language: Faroese Communication Ability: Effective Construction Assistant Required: No Beliefs That Will Affect Care: None marital status: Current Living Situation: Significant Other current occupational status: employed Feels Safe at Home: Yes Assistive Devices: None Review of Systems Review of Systems: As per HPI, all other systems reviewed and negative Physical Exam Physical Exam: GENERAL: Comfortable, pleasant, no respiratory distress SKIN: Normal color, warm HEENT: [place] palpebral conjunctivae, no ptosis, dry buccal mucosa NECK : Supple, no tenderness CHEST : CTA, no tenderness HEART : RRR, no obvious murmurs ABDOMEN: no distention, nontender EXTREMITIES : No LE swelling/tenderness, no other conspicuous deformities noted NEUROLOGIC : Coherent, no facial asymmetry, no other gross focality Results & Data Results & Data Vital Signs (Past 12 Hours) Vital Signs Temp Pulse Resp BP Pulse Ox O2 Del Method 10/08/24 03:00 74 22 98 10/08/24 02:57 77 21 98 10/08/24 02:33 75 20 99 10/08/24 02:21 134/98 10/08/24 02:21 74 18 97 10/08/24 02:06 70 16 100 10/08/24 01:48 73 19 98 10/08/24 01:12 76 22 98 10/08/24 01:09 79 18 97 10/08/24 00:51 70 18 98 10/08/24 00:41 98 H 16 120/72 98 Room Air 10/08/24 00:40 79 10/08/24 00:09 Room Air 10/07/24 22:39 36.7 C 98 H 18 135/83 100 Room Air Laboratory Results Laboratory Results WBC 5.12 K/ul (4.8-10.8) 10/08/24 03:02 RBC 3.97 M/uL (4.20-5.40) L 10/08/24 03:02 Hgb 12.6 g/dl (12.0-16.0) 10/08/24 03:02 Hct 38.4 % (37.0-47.0) 10/08/24 03:02 MCV 96.7 fL (80.0-100.0) 10/08/24 03:02 MCH 31.7 pg (25.0-34.0) 10/08/24 03:02 MCHC 32.8 g/dL (32.0-36.0) 10/08/24 03:02 RDW Std Deviation 45.2 fL (36.4-46.3) 10/08/24 03:02 RDW Coeff of Ruby 12.6 % (11.5-14.5) 10/08/24 03:02 Plt Count 161 K/uL (130-400) 10/08/24 03:02 MPV 10.4 fL (9.4-12.4) 10/08/24 03:02 Immature Gran % (Auto) 0.2 % 10/08/24 03:02 Neut % (Auto) 58.0 % 10/08/24 03:02 Lymph % (Auto) 27.7 % 10/08/24 03:02 [place] % (Auto) 10.2 % 10/08/24 03:02 Eos % (Auto) 3.1 % 10/08/24 03:02 Baso % (Auto) 0.8 % 10/08/24 03:02 Neut # (Auto) 2.97 K/uL (1.40-6.50) 10/08/24 03:02 Lymph # (Auto) 1.42 K/uL (1.20-3.40) 10/08/24 03:02 [place] # (Auto) 0.52 K/uL (0.11-0.59) 10/08/24 03:02 Eos # (Auto) 0.16 K/uL (0.00-0.50) 10/08/24 03:02 Baso # (Auto) 0.04 K/uL (0.00-0.20) 10/08/24 03:02 Immature Gran # (Auto) 0.01 K/uL (0.01-0.20) 10/08/24 03:02 Sodium 141 mmol/L (136-145) 10/07/24 22:50 Potassium 4.2 mmol/L (3.5-5.1) 10/07/24 22:50 Chloride 107 mmol/L (98-107) 10/07/24 22:50 Carbon Dioxide 26 mmol/L (21-32) 10/07/24 22:50 Anion Gap 8 (3-11) 10/07/24 22:50 BUN 16 mg/dl (6-23) 10/07/24 22:50 Creatinine 0.82 mg/dl (0.6-1.2) 10/07/24 22:50 Est Cr Clr Drug Dosing 81.2 ml/min 10/07/24 22:50 eGFR 92.10 10/07/24 22:50 BUN/Creatinine Ratio 19.5 (10-20) 10/07/24 22:50 Glucose 126 mg/dl (70-99(Fasting)) H 10/07/24 22:50 Calcium 9.5 mg/dl (8.6-10.3) 10/07/24 22:50 Magnesium 2.1 mg/dl (1.7-2.4) 10/07/24 22:50 Total Bilirubin 0.4 mg/dl (0.2-1.0) 10/07/24 22:50 AST 26 U/L (13-39) 10/07/24 22:50 ALT 17 U/L (7-52) 10/07/24 22:50 Alkaline Phosphatase 51 U/L (34-104) 10/07/24 22:50 Troponin I High Sens 60.5 pg/ml (0-14) H* D 10/08/24 00:31 Total Protein 7.2 gm/dl (6.0-8.3) 10/07/24 22:50 Albumin 4.4 gm/dl (3.4-5.0) 10/07/24 22:50 Globulin 2.8 gm/dl (2.5-4.0) 10/07/24 22:50 Albumin/Globulin Ratio 1.6 (0.9-2) 10/07/24 22:50 Lipase 18 U/L (11-82) 10/07/24 22:50 TSH 3.963 uIu/ml (0.300-4.500) 10/07/24 22:50 Impressions Chest X-Ray 10/07/24 22:42 EXAM: XR chest 1V portable CLINICAL HISTORY: CHEST PAIN JMF TECHNIQUE: X-ray image of the chest is obtained in AP portable projection. COMPARISON: 03/06/2016 CR. FINDINGS: Pulmonary Parenchyma: Hyperinflated both lungs. Prominent bronchovascular markings are noted in both lungs. Few small nodular opacities are seen in the right lung upper and lower zones, one of them measures 7 mm which is projecting over the right seventh rib posteriorly. No evidence of consolidation, or collapse. No evidence of pleural effusion or pleural thickening. Heart and Mediastinum: Heart size and shape are normal. No mediastinal widening or masses. No hilar or mediastinal lymphadenopathy. Bony Thorax: Bony thorax appears intact without fractures or deformities. Soft Tissues: Soft tissues overlying the chest wall are unremarkable. IMPRESSION: 1. Hyperinflated both lungs. 2. Prominent bronchovascular markings in both lungs. Needs clinical correlation. 3. Few small nodular opacities in right lung upper and lower zones, one of them measures 7 mm which is projecting over the right seventh rib posteriorly. 4. The findings are interval new. [facility]'s ER was called at [phone] at 12:00 AM BURN TABLE OPERATOR, 10/08/2024, and Nurse Grace was informed regarding the presence of Important Medical Findings on this report. Electronically signed by Anshu Gonzalez 10-08-2024 01:05 AM Diagnostic Findings EKG as per my interpretation :Rate 100, NSR, normal axis, incomplete RBBB, no ischemia
[2024-10-08] MEDS ORDERED: LORazepam 0.5 MG TAB PO PRN (03:39)
[2024-10-08] MEDS ORDERED: ACETAMINOPHEN 325 MG TAB PO PRN (03:39)
[2024-10-08] MEDS ORDERED: PROMETHAZINE 6.25 MG/50.25 ML BAG IV PRN (03:39)
[2024-10-08] MEDS: OPTIRAY 320 125ml IV ONE (04:06)
[2024-10-08] MEDS: SODIUM CHLORIDE 0.9% 1,000 ML IV ONE (04:11)
[2024-10-08] MEDS: MELATONIN 3 MG TAB PO PRN (04:16)
[2024-10-08 04:41] LABS: Appearance Urine Clear (Clear); Bilirubin Urine Negative (Negative); Blood Urine Negative (Negative); Color Urine Yellow; Glucose Urine UA Negative (Negative); Ketones Urine Negative (Negative); Leukocyte Esterase Urine Negative (Negative); Nitrite Urine Negative (Negative); Protein Urine Negative (Negative); Specific Gravity Urine 1.024 (1.000-1.030); Urobilinogen Urine Negative (Negative)
--- NOTE | 2024-10-08 04:55 | CT Scan Report ---
EXAM: CT angio chest PE protocol CLINICAL HISTORY: palpitations, 118 ml optiray 320 TECHNIQUE: Contiguous axial images were obtained from the neck base through the upper abdomen following intravenous administration of iodinated contrast material with multiple reformats. One of the following dose reduction techniques was utilized for this exam.Automated exposure control, adjustment of the mA and/or kV according to patient size, and use of iterative reconstruction. One of these 3D techniques was utilized: Maximum Intensity Pixel (MIP), 3D Reconstructed Images, Volume Rendered Images, Surface Shaded Rendering. COMPARISON: None. FINDINGS: No significant/acute lung parenchymal abnormality detected. Subpleural subsegmental atelectasis with ground-glass densities and interstitial thickening is noted involving the inferior lingula. The central airways are patent. There are no pleural effusions. No pneumothorax is seen. Mild cardiomegaly is noted. Aorta and pulmonary arteries are of normal size and configuration. There are no appreciable coronary artery and aortic atherosclerotic calcifications. No axillary or mediastinal adenopathy is identified. The thyroid is unremarkable. Imaged portions of the upper abdomen are unremarkable. No aggressive appearing osseous lesions are identified. IMPRESSION: 1. No evidence of pulmonary embolism. Suboptimal evaluation due to late acquisition. 2. No significant/acute lung parenchymal abnormality detected. 3. Mild cardiomegaly. Electronically signed by Hieu Philippe 10-08-2024 04:54 AM
[2024-10-08 05:24] LABS: Amphetamines+Metham, Urine Neg (Neg); Barbiturates, Urine Neg (Neg); Benzodiazepine, Urine Neg (Neg); Cocaine, Urine Neg (Neg); Fentanyl, Urine Neg (Neg); MDMA (Ecstacy), Urine Neg (Neg); Marijuana, Urine Neg (Neg); Methadone, Urine Neg (Neg); Opiate, Urine Neg (Neg); Phencyclidine, Urine Neg (Neg)
[2024-10-08 05:29] LABS: Adenovirus PCR Not Detected (NotDetected); Bordetella parapertussis PCR Not Detected (NotDetected); Bordetella pertussis PCR Not Detected (NotDetected); Chlamydia pneumoniae PCR Not Detected (NotDetected); Coronavirus 229E PCR Not Detected (NotDetected); Coronavirus CoV-2 (COVID19)PCR Not Detected (NotDetected); Coronavirus HKU1 PCR Not Detected (NotDetected); Coronavirus NL63 PCR Not Detected (NotDetected); Coronavirus OC43PCR Not Detected (NotDetected); Human Metapneumovirus PCR Not Detected (NotDetected); Influenza A PCR Not Detected (NotDetected); Influenza B PCR Not Detected (NotDetected); Mycoplasma pneumoniae PCR Not Detected (NotDetected); Parainfluenza Virus 1 PCR Not Detected (NotDetected); Parainfluenza Virus 2 PCR Not Detected (NotDetected); Parainfluenza Virus 3 PCR Not Detected (NotDetected); Parainfluenza Virus 4 PCR Not Detected (NotDetected); Respiratory Syncytial VirusPCR Not Detected (NotDetected); Rhinovirus/Enterovirus PCR Not Detected (NotDetected)
[2024-10-08 07:33] LABS: Estimated Average Glucose 94 mg/dl; Hemoglobin A1C 4.9 % (4.5-5.6)
[2024-10-08] MEDS: METOPROLOL SUCC 25MG EXT REL TAB PO SCH (09:24)
--- NOTE | 2024-10-08 09:55 | Electrocardiogram Report ---
Test Reason : Blood Pressure : */* mmHG Vent. Rate : 97 BPM Atrial Rate : 97 BPM P-R Int : 134 ms QRS Dur : 84 ms QT Int : 336 ms P-R-T Axes : 68 70 55 degrees QTcB Int : 426 ms Normal sinus rhythm Possible Left atrial enlargement RSR' or QR pattern in V1 suggests right ventricular conduction delay When compared with ECG of 06-Mar-2016 23:45, No significant change was found Confirmed by Jose Kumari ([id number]) on 10/08/2024 9:55:46 AM Referred By: REFERRED SELF Confirmed By: Jose Kumari
--- NOTE | 2024-10-08 10:32 | Cardiology Consultation ---
Date of Consultation October 08, 2024 Assessment & Plan (1) Heart palpitations: (2) Elevated troponin: Plan Plan: Case has been discussed with Dr. Hanson. Further recommendations regarding plan of care as per his assessment. I spent a total of 40 minutes on the date of service in preparation, delivery, documentation of the care provided to the patient excluding any time spent in the performance of separately billed services. JHONATHAN Castro [facility] Cardiology [facility] Supervising Physician Co-Signing Physician Notes Attending Staff: Pt seen and evaluated with AP Staff Concur with observations and plans 39 yo woman present with hours of intermittent palpitations Hx PSVT MVP ADHD Splenomegaly No chest pain No dyspnea No stimulant use K+ - 4.2 Mag++ - 2.2 TSH - 3.963 Troponin elevated - peaked at 80.8 Tox Screen - negative Plans: * SVT reported - * No rhythm strips for review * HR reported on smart watch - 160-170 BPM x 5 hrs * Troponin mildly elevated * Please increase Toprol XL to 50 mg po per day; if run into symptomatic hypotension, may change to Toprol XL 25 mg po BID * Electrolytes - repleted * TSH WNL * Plans for Zio Patch as an outpt * Cardiac CTA as an outpt to address troponin elevation * 60 min spent addressing challenges, educating and advancing daily plan of care Rajan Hanson History of Present Illness Reason for Consultation: Elevated Troponin, PSVT Requesting Physician: Angi hospitalist Attending Physician: Jose Armando Swann DO History of Present Illness HPI: 39 year old female with PMHx signficant for PSVT, Mitral valve prolapse, splenomegaly, ADHD that presented to the ER with complaints of Intermittent palpitations for approx 5 hours yesterday. Patient reports this felt similar to her prior "SVT attack". Denies any chest pain or dyspnea. Denies any missed medications, no unusual stressors, acute illnesses, caffeine or OTC cold prep use. EKG on arrival NSR Rate 97bpm Chest xray: IMPRESSION: 1. Hyperinflated both lungs. 2. Prominent bronchovascular markings in both lungs. Needs clinical correlation. 3. Few small nodular opacities in right lung upper and lower zones, one of them measures 7 mm which is projecting over the right seventh rib posteriorly. Chest CTA IMPRESSION: 1. No evidence of pulmonary embolism. Suboptimal evaluation due to late acquisition. 2. No significant/acute lung parenchymal abnormality detected. 3. Mild cardiomegaly. Electrolytes --WNL Troponin I: High sensitivity: 60.5/80.8/ 71.4 Echo pending Allergies Allergy/AdvReac Type Severity Reaction Status Date / Time Sulfa (Sulfonamide Allergy Unknown HAPPENED Verified 06/03/23 21:05 Antibiotics) A SMALL CHILD Home Medications Medication Instructions Recorded Confirmed Type acetaminophen 500 mg tablet 500 mg PO DIRECTED PRN Pain 06/03/23 10/08/24 History (Tylenol Extra Strength) bismuth subsalicylate 262 mg/15 mL 524 mg PO DIRECTED PRN Gi Upset 06/03/23 10/08/24 History oral suspension (Pepto-Bismol) calcium carbonate (Tums) 200 - 400 mg PO DIRECTED PRN 06/03/23 10/08/24 History HEARTBURN/GI UPSET levonorgestrel-ethinyl estradiol 1 tab PO QAM 06/03/23 10/08/24 History 0.1 mg-20 mcg tablet loratadine 10 mg tablet (Claritin) 10 mg PO DAILY PRN Congestion 06/03/23 10/08/24 History metoprolol succinate 25 mg 50 mg (2 x 25 mg) PO QAM #60 tabs 10/08/24 Rx tablet,extended release 24 hr Patient History Medical History SVT (supraventricular tachycardia) Hx of splenomegaly Surgical History Hx of elbow surgery Family History Other Gallbladder disease Social History Smoking Status: Never smoker Second Hand Exposure: No; Do You Dip or Chew Tobacco: No; Hx Alcohol Use: Yes Alcohol type: wine Hx Substance Use: No Preferred Language: Armenian Communication Ability: Effective Rent And Housing Investigator Required: No Beliefs That Will Affect Care: None marital status: Current Living Situation: Significant Other current occupational status: employed Feels Safe at Home: Yes Assistive Devices: None Review of Systems Review of Systems: All systems reviewed & are unremarkable except as noted in HPI & below Physical Exam Physical Exam: As documented by Dr. Hanson This woman in NAD No elevation in JVP S1S2 CTA B + BS No c/c/e Warm and perfused Results & Data Vital Signs (Past 12 Hours) Vital Signs Temp Pulse Pulse Resp BP BP Pulse Ox 10/08/24 07:31 36.8 C 68 16 106/67 98 10/08/24 05:34 36.6 C 82 18 124/76 96 10/08/24 05:25 10/08/24 05:10 10/08/24 04:30 85 17 98 10/08/24 04:21 75 16 97 10/08/24 04:15 76 12 99 10/08/24 03:57 10/08/24 03:45 76 21 98 10/08/24 03:39 74 22 98 10/08/24 03:21 75 15 98 10/08/24 03:12 72 18 98 10/08/24 03:00 74 22 98 10/08/24 02:57 77 21 98 10/08/24 02:33 75 20 99 10/08/24 02:21 134/98 10/08/24 02:21 74 18 97 10/08/24 02:06 70 16 100 10/08/24 01:48 73 19 98 10/08/24 01:12 76 22 98 10/08/24 01:09 79 18 97 10/08/24 00:51 70 18 98 10/08/24 00:41 98 H 16 120/72 98 10/08/24 00:40 79 10/08/24 00:09 10/07/24 22:39 36.7 C 98 H 18 135/83 100 Pulse Ox O2 Del Method O2 Del Method 10/08/24 07:31 Room Air 10/08/24 05:34 Room Air 10/08/24 05:25 Room Air 10/08/24 05:10 Room Air 10/08/24 04:30 10/08/24 04:21 10/08/24 04:15 10/08/24 03:57 97 Room Air 10/08/24 03:45 10/08/24 03:39 10/08/24 03:21 10/08/24 03:12 10/08/24 03:00 10/08/24 02:57 10/08/24 02:33 10/08/24 02:21 10/08/24 02:21 10/08/24 02:06 10/08/24 01:48 10/08/24 01:12 10/08/24 01:09 10/08/24 00:51 10/08/24 00:41 Room Air 10/08/24 00:40 10/08/24 00:09 Room Air 10/07/24 22:39 Room Air Laboratory Results Cardiac Enzymes 10/07/24 10/08/24 10/08/24 Range/Units 22:50 00:31 03:02 AST 26 (13-39) U/L Troponin I High Sens 26.7 H 60.5 H* D 80.8 H* D (0-14) pg/ml 10/08/24 Range/Units 08:16 AST (13-39) U/L Troponin I High Sens 71.4 H* (0-14) pg/ml CBC 10/07/24 10/08/24 Range/Units 22:50 03:02 WBC 6.70 5.12 (4.8-10.8) K/ul RBC 4.32 3.97 L (4.20-5.40) M/uL Hgb 14.0 12.6 (12.0-16.0) g/dl Hct 41.7 38.4 (37.0-47.0) % Plt Count 194 161 (130-400) K/uL Neut # (Auto) 3.22 2.97 (1.40-6.50) K/uL Lymph # (Auto) 2.64 1.42 (1.20-3.40) K/uL [place] # (Auto) 0.58 0.52 (0.11-0.59) K/uL Eos # (Auto) 0.21 0.16 (0.00-0.50) K/uL Baso # (Auto) 0.04 0.04 (0.00-0.20) K/uL Comprehensive Metabolic Panel 10/07/24 Range/Units 22:50 Sodium 141 (136-145) mmol/L Potassium 4.2 (3.5-5.1) mmol/L Chloride 107 (98-107) mmol/L Carbon Dioxide 26 (21-32) mmol/L BUN 16 (6-23) mg/dl Creatinine 0.82 (0.6-1.2) mg/dl Glucose 126 H (70-99(Fasting)) mg/dl Calcium 9.5 (8.6-10.3) mg/dl AST 26 (13-39) U/L ALT 17 (7-52) U/L Alkaline Phosphatase 51 (34-104) U/L Total Protein 7.2 (6.0-8.3) gm/dl Albumin 4.4 (3.4-5.0) gm/dl Intake and Output 10/07/24 10/08/24 10/08/24 22:59 06:59 14:59 Other: Weight 61.3 kg 61.3 kg Weight Measurement Method Chair Scale [facility] Medications Administered Current Inpatient Medications Acetaminophen (Acetaminophen 325 Mg Tab) 650 mg PO QID PRN PRN Reason: pain/fever Stop: 11/07/24 03:38 Promethazine HCl (Phenergan) 6.25 mg in 50.25 mls @ 201 mls/hr IV Q6H PRN PRN Reason: Nausea And Vomiting Stop: 11/07/24 03:38 Sodium Chloride (Nss) 1,000 mls @ 75 mls/hr IV .[id number] ONE Stop: 10/08/24 16:59 Last Admin: 10/08/24 04:11 Dose: 75 mls/hr Lorazepam (Lorazepam 0.5 Mg Tab) 0.25 mg PO TID PRN PRN Reason: Anxiety Stop: 11/07/24 03:38 Melatonin (Melatonin 3 Mg Tab) 3 mg PO HS PRN PRN Reason: Sleep Stop: 11/07/24 03:38 Last Admin: 10/08/24 04:16 Dose: 3 mg Metoprolol Succinate (Metoprolol Succ 25mg Ext Rel Tab) 25 mg PO QAM HANNAH Stop: 11/07/24 08:59 Last Admin: 10/08/24 09:24 Dose: 25 mg
[2024-10-08 10:45] LABS: Partial Thromboplastin Ratio 0.9; Partial Thromboplastin Time 25 Seconds (21-31)
[2024-10-08 11:20] VITALS: RESP 18
[2024-10-08 15:00] VITALS: BP 107/70; PULSE 78; TEMP 98.1; O2SAT 97
--- NOTE | 2024-10-08 16:21 | Discharge Summary ---
Discharge Summary Date of Service October 08, 2024 Principal Dx & Hospital Course #1 = Principal Diagnosis (1) Paroxysmal supraventricular tachycardia: (2) Demand ischemia of myocardium: Plan Patient is a 39-year-old female with reported history of paroxysmal supraventricular tachycardia, presented to the emergency room with complaints of palpitations. She reported that her symptoms were going on for about 5 hours. She denied any chest pain or shortness of breath. Evaluation in the emergency room was significant for elevated troponin but there was no evidence of SVT on EKG or telemetry monitoring. The patient was observed in the hospital on a monitored unit. Patient had no recurrence of her symptoms and no SVT was documented on monitoring. Echocardiogram was performed showed normal ejection fraction no other acute abnormalities. Cardiology consultation was obtained due to the troponins and her recurrent symptoms as an outpatient she does not follow with cardiology. Patient was evaluated by cardiology. They recommended increasing her Toprol-XL to 50 mg daily and following up in their office and she can be discharged home. Patient be discharged with these recommendation to follow-up with cardiology and PCP. Notes For Next Care Provider Follow-up with cardiology Medication Changes From Visit Metoprolol dose increased Admission HPI Per Admitting Provider History obtained from patient and records. Medical history significant for PSVT, mitral valve prolapse as per records, splenomegaly, ADHD. Last confinement 2016 for gastroenteritis. Patient with intermittent palpitations for about 5 hours yesterday afternoon. Similar to SVT attack. No actual chest pain or SOB. Compliant with home beta-marcella. Denies unusual stress at home or at work. Denies inordinate caffeine or decongestant intake. Just feeling fatigued. No recent tick bites. Medical History as above Surgical History : Dental surgery, arm abscess drainage Family History : Colon cancer, carcinoid tumor, heart disease Personal/Social history : Non-smoker, occasional EtOH intake, daycare work Admission Exam Per Admitting Provider See H&P Discharge Exam Constitutional: Alert HEENT: Mucous membranes moist. Lungs: Clear to auscultation, decreased, no wheezes rales or rhonchi CV: S1-S2, regular Abdomen: Soft, nontender, nondistended Extremities: No significant edema Neuro: No focal deficits Psych: Cooperative, normal mood Updated Medication List Medication Instructions Recorded Confirmed Type acetaminophen 500 mg tablet 500 mg PO DIRECTED PRN Pain 06/03/23 10/08/24 History (Tylenol Extra Strength) bismuth subsalicylate 262 mg/15 mL 524 mg PO DIRECTED PRN Gi Upset 06/03/23 10/08/24 History oral suspension (Pepto-Bismol) calcium carbonate (Tums) 200 - 400 mg PO DIRECTED PRN 06/03/23 10/08/24 History HEARTBURN/GI UPSET levonorgestrel-ethinyl estradiol 1 tab PO QAM 06/03/23 10/08/24 History 0.1 mg-20 mcg tablet loratadine 10 mg tablet (Claritin) 10 mg PO DAILY PRN Congestion 06/03/23 10/08/24 History metoprolol succinate 25 mg 50 mg (2 x 25 mg) PO QAM #60 tabs 10/08/24 Rx tablet,extended release 24 hr Hospital Stay Data Consultations 10/08/24 02:20 ED Decision to Admit Stat 10/08/24 08:17 Consult Cardiology Routine Diagnostic Imagining Performed 10/08/24 03:39 CT angio chest PE protocol Stat Reviewed imaging, laboratory and diagnostic studies. Pertinent findings as below. Urine drug screen negative Respiratory viral panel negative Echocardiogram shows ejection fraction Of 60-65% with normal LV size and function, normal diastolic function no valvular disease. I refer to full report for details. CTA of the chest negative for PE Pending Results Patient Have Any Pending Studies at Discharge: No Discharge Instructions Given to Patient (Per Discharging Provider) Follow-up with cardiology as coordinated through their office We are recommending you increase your metoprolol to 50 mg daily to continue to suppress your palpitations. Total Time Total Time Spent Total Time Spent (In Minutes): 25
--- OUTSIDE RECORDS SUMMARY | 2024-10-10 07:55 | External Medical Summary | Summary of Care ---
Author Name Unknown Organization [facility] Address [address] [place] [address] Phone [phone] Care Team Providers Care Oracle Data Warehouse Developer Name Role Phone Tiffanie Huffman PA-C Primary Care Provider [phone] Reason for Visit * Reason Comments Physical-Exam Pt states that she i s here for a physical Encounter Details Date Type Department Care Team (Latest Contact Info) Description 06/05/2024 1:00 PM EDT Office Visit [facility] [address] [place] [address] Tiffanie Huffman PA-C [address] [place] [address] Wellness examination*; Encounter for screening mammogram for breast cancer; Encounter for surveillance of contraceptive pills; Splenomegaly; SVT (supraventricular tachycardia) (HCC) Allergies Active Allergy Reactions Criticality Noted Date Comments Sulfa Antibiotics Hives 11/19/2012 documented as of this encounter (statuses as of 06/05/2024) Medications Medication Sig Dispensed Refills Start Date End Date Status Bismuth Subsalicylate 262 MG/15ML Oral Suspension (Pepto-Bismol) 30 mL. 06/03/20 23 Active Acetaminophen 500 MG Oral Tablet (Tylenol) 1 Tablet. 06/03/20 23 Active Loratadine 10 MG Oral Tablet (Claritin) 1 Tablet. 06/03/20 23 Active Polyethylene Glycol 3350 17 GM/SCOOP Oral Powder (MiraLax)Indicati ons:Lower abdominal pain,Constipation , unspecified constipation type Mix 1 cap full in 8 ounces of water or juice or gatorade and drink daily for 7-10 days. Repeat as needed. 289 g 1 06/04/20 23 Active Bisacodyl 10 MG Rectal Suppository (Dulcolax)Indicat ions:Lower abdominal pain,Constipation , unspecified constipation type Administer 1 Suppository into the rectum at bedtime as needed for Constipation. Do not use for more than 1 week. 5 Suppository 1 06/04/20 23 Active Metoprolol Succinate ER 25 MG Oral Tablet Extended Release 24 Hour (toPROL XL) Take 1 Tablet by mouth in the morning. In the morning.. 90 Tablet 1 06/05/20 24 Active Levonorgestrel-Et hinyl Estrad 0.1-20 MG-MCG Oral TabletIndications :Encounter for surveillance of contraceptive pills Take 1 Tablet by mouth in the morning. 84 Tablet 3 06/05/20 24 Active Calcium Carbonate 1250 (500 Ca) MG Oral Tablet Chewable As Directed 06/03/20 23 024 Discontinued Metoprolol Succinate ER 25 MG Oral Tablet Extended Release 24 Hour (toPROL XL) take 1 tablet by mouth every morning 90 Tablet 1 08/21/20 23 024 Discontinued(Re fill) Levonorgestrel-Et hinyl Estrad 0.1-20 MG-MCG Oral TabletIndications :Encounter for surveillance of contraceptive pills Take 1 Tablet by mouth in the morning. 84 Tablet 3 10/15/20 23 024 Discontinued(Re fill) documented as of this encounter (statuses as of 06/05/2024) Active Problems Problem Noted Date Diagnosed Date Altered mental status 06/04/2023 Marijuana use 06/04/2023 Mitral valve prolapse 06/04/2023 Supraventricular tachycardia 06/04/2023 SVT (supraventricular tachycardia) 01/22/2023 SVT (supraventricular tachycardia) 01/22/2023 Splenomegaly 2018 documented as of this encounter (statuses as of 06/05/2024) Resolved Problems Problem Noted Date Diagnosed Date Resolved Date Chronic sinusitis 11/19/2012 04/25/2017 Chronic rhinitis 11/19/2012 04/25/2017 Cough 11/19/2012 04/25/2017 Allergic rhinitis 04/25/2017 MVP (mitral valve prolapse) 04/15/2022 documented as of this encounter (statuses as of 06/05/2024) Immunizations Name Administration Dates Next Due COVID-19, mRNA, LNP-s, PF, B ooster, 100mcg/0.5mg (Moderna) 11/03/2021 Covid-19 Ad26, Single Dose (Deidre/J&J) 021 PPD 10/06/2016 documented as of this encounter Social History Tobacco Use Types Packs/Day Years Used Date Smoking Tobacco: Never Smokeless Tobacco: Never Tobacco Cessation:Counseling Given: Not Answered Alcohol Use Standard Drinks/Week Comments Yes 0 (1 standard drink = 0.6 oz pur e alcohol) once a month PHQ-2 Answer Date Recorded PHQ Adult Total Score 0 02/20/2023 Hunger Vital Sign Answer Date Recorded Within the past 12 months, y ou worried that your food would run out before you got the money to buy more. Never true 02/21/20 23 Within the past 12 months, t he food you bought just didn't last and you didn't have money to get more. Never true 02/20/2023 Utilities Answer Date Recorded Do you have trouble paying y our heating, water, or electric bill? (Adult - for ages 18 years and over) Not on file 04/22/2024 Is your family able to pay t he heat, water, or electric bill? (Household - for ages 0-17 years) Not on file 04/22/2024 Does your family have access to good internet? (Household - for ages 0-17 years) Not on file 04/22/2024 Social Connections Answer Date Recorded How often do you feel lonely or isolated from those around you? (Adult - for ages 18 years and over) Not on file 04/22/2024 Sex and Gender Information Value Date Recorded Sex Assigned at Not on file Gender Identity Female 02/20/2023 1:04 PM EDT Sexual Orientation Not on file Job Start Date Occupation Industry Not on file Not on file Not on file documented as of this encounter Last Filed Vital Signs Vital Sign Reading Time Taken Comments Blood Pressure 122/62 06/05/2024 1:05 PM EDT Pulse 61 06/05/2024 1:05 PM EDT Temperature 36.3 C (97.4 F) 06/05/2024 1:05 PM ED T Respiratory Rate 16 06/05/2024 1:05 PM EDT Oxygen Saturation 98% 06/05/2024 1:05 PM EDT Inhaled Oxygen Concentration - - Weight 61.5 kg (135 lb 9.6 oz) 06/05/2024 1:05 P M EDT Height 165.1 cm (5' 5") 06/05/2024 1:05 PM EDT Body Mass Index 22.57 06/05/2024 1:05 PM EDT documented in this encounter Progress Notes * Tiffanie Huffman PA-C - 06/05/2024 1:07 PM EDT Images from the original note were not included. History of Present Illness Ruth Bravo is a 39 year old female that presents for Physical-Exam (Pt states that she is here for a physical ) Here for cpe Pap current - on ocp, Mammo due Tdap due Has a form. Needs erfills Range Operator concerns Levonorgestrel-Ethinyl Estrad 0.1-20 MG-MCG Oral Tablet Metoprolol Succinate ER 25 MG Oral Tablet Extended Release 24 Hour (toPROL XL) Acetaminophen 500 MG Oral Tablet (Tylenol) Bisacodyl 10 MG Rectal Suppository (Dulcolax) Bismuth Subsalicylate 262 MG/15ML Oral Suspension (Pepto-Bismol) Loratadine 10 MG Oral Tablet (Claritin) Polyethylene Glycol 3350 17 GM/SCOOP Oral Powder (MiraLax) Calcium Carbonate 1250 (500 Ca) MG Oral Tablet Chewable Extensive ROS Constitutional (f/c/wt/vision/hearing): Negative Resp (cough/sob/ha): Negative CV (cp/palp/fluttering/diaphoresis/ha/pnd):Negative GI (n/v/d/hrtburn): Negative Endo (hair/cold or heat intol/ 3 p's): Negative Neuro (shaking/weak/fatigu/parasthesi/): Negative Skin (rash/easy bruis/xerosis): Negative Psy (si/hi/halluc/): Negative (nocturia/hesit/drib/sexual review): Negative Lymph (swollen glands/b sx's/: Negative Physical Exam Vitals: 06/05/24 1305 Temp: 36.3 C (97.4 F) Pulse: 61 Resp: 16 SpO2: 98% BP: 122/62 BMI: 22.57 BP Readings from Last 3 Encounters: 06/05/24 122/62 07/16/23 110/62 06/04/23 108/60 Wt Readings from Last 3 Encounters: 06/05/24 61.5 kg (135 lb 9.6 oz) 02/20/23 58.4 kg (128 lb 12.8 oz) 01/22/23 57.7 kg (127 lb 3.2 oz) BMI Readings from Last 3 Encounters: 06/05/24 22.57 kg/m 02/20/23 21.43 kg/m 01/22/23 21.17 kg/m Ht Readings from Last 3 Encounters: 06/05/24 1.651 m (5' 5") 02/20/23 1.651 m (5' 5") 10/05/22 1.651 m (5' 5") General: alert, healthy, and no distress Head: Normocephalic, No masses, lesions, tenderness or abnormalities Eye Exam: PERRLA, extraocular movements intact, conjunctiva are pink and non- injected, sclera clear Ears: External ears normal, Canals clear, TM's Normal Nose: no mucosal erythema, no mucosal edema, no purulent discharge Oropharynx: no exudate, no erythema, lips, buccal mucosa, and tongue normal, and mucous membranes are moist Neck: supple, no adenopathy, no bruits, thyroid normal size, non-tender, without nodularity Heart: regular rate & rhythm, no murmur, no gallops, S-1 normal, and S-2 normal Lungs: chest symmetric with normal AP diameter, no chest deformities noted, no chest wall tenderness, lungs clear to auscultation Pulses: carotid=2/4 w/o bruits Abdomen: abdomen soft, non-tender, normal bowel sounds, and no masses or organomegaly Back: back symmetric, no curvature, no costovertebral angle tenderness, range of motion is normal Extremities: less than 2 second capillary refill, no joint deformities, effusion, or inflammation Neuro Exam: alert & oriented x 3 with fluent speech, no focal motor/sensory deficits, gait normal, reflexes normal and symmetric Skin: skin color, texture, turgor are normal, no rashes or significant lesions Musculoskeletal: FROM UE and LE, normal tone, no gross deformity noted, neg SIS, no synovitis appreciated in the small joints of the hands Assessment and Plan Wellness examination (Primary) Encounter for screening mammogram for breast cancer - MAMMOGRAM SCREENING MANAS BILATERAL; Future; Expected date: 06/05/2024 Encounter for surveillance of contraceptive pills - Levonorgestrel-Ethinyl Estrad 0.1-20 MG-MCG Oral Tablet; Take 1 Tablet by mouth in the morning. Splenomegaly - US ABDOMEN LIMITED; Future; Expected date: 06/05/2024 SVT (supraventricular tachycardia) (HCC) Other orders - Metoprolol Succinate ER 25 MG Oral Tablet Extended Release 24 Hour (toPROL XL); Take 1 Tablet by mouth in the morning. In the morning.. Wrap-Up Form signed Time: I spent a total of 10-19 minutes (exact time 15 mins) on the date of service in preparation, delivery, and documentation of the care provided to Ruth Bravo excluding any time spent in the performance of separately billed services. Tiffanie Huffman PA-C 06/05/2024 1:18 PM documented in this encounter Nursing Notes * Jesusita Jaime LPN - 06/05/2024 1:05 PM EDT Ruth Bravo is a 39 year old female who presents today for Chief Complaint Patient presents with Physical-Exam Pt states that she is here for a physical documented in this encounter Plan of Treatment Upcoming Encounters Date Type Department Care Team (Late st Contact Info) Description 07/08/2024 9:00 AM EDT Imaging Radiology[address] [place] [address] Scheduled Orders Name Type Priority Associated Diagnoses Orde r Schedule MAMMOGRAM SCREENING MANAS BILATERAL Medical Imaging Routine Encounter for screening mammogram for breast cancer Expected: 06/05/2024, Expires: 07/06/2025 US ABDOMEN LIMITED Medical Imaging Routine Splenomegaly Expected: 06/05/2024, Expires: 07/06/2025 Health Maintenance Due Date Last Done Comments Lipid Panel 1983 HIV Screening 1998 Hepatitis C Screening 2001 DTaP,Tdap,and Td Vaccines (1 - Tdap) 2002 Hepatitis B Vaccine (1 of 3 - 19+ 3-dose series) 2002 Mammogram 2023 COVID-19 Vaccine (3 - 2022-24 season) 2023 11/03/2021, 02/12/2021 Depression Screening 02/21/2024 02/20/2023 Influenza Vaccine (FLU shot) (#1) 2024 Pap Smear 01/22/2026 01/22/2023, 08/05, 12/17/2017, Additional history exists Cervical Cancer Screening 01/23/2028 HPV/Co-Test 01/23/2028 01/22/2023 HPV (Gardasil) Vaccine Aged Out No lo nger eligible based on patient's age to complete this topic MENINGOCOCCAL (MENACTRA/MENVEO) Aged Out No longer eligible based on patient's age to complete this topic Pneumococcal Vaccine: Pediatrics (0 to 5 Years) and At-Risk Patients (6 to 64 Years) Aged Out No longer eligible based on patient's age to complete this topic documented as of this encounter Medical Devices Not on filedocumented as of this encounter Visit Diagnoses Diagnosis Wellness examination- Primary Encounter for screening mammogram for breast cancer Encounter for surveillance of contraceptive pills Surveillance of previously prescribed contraceptive pill Splenomegaly SVT (supraventricular tachycardia) (HCC) Other specified cardiac dysrhythmias documented in this encounter Care Teams Oracle Data Warehouse Developer Relationship Specialty Start Date End Date Tiffanie Huffman PA-C [address] [facility] [place] [address] PCP - General Physician Scalehouse Attendant 07/21/22 documented as of this encounter
== END 2024-10-08 18:13 | disposition home or self-care (01) ==
LOC: ED 22:37 → EDINP 22:37 → 4W 10-08 05:10